=== PATIENT | male | born 1955 | race American Indian/Alaskan Native ===

== ENCOUNTER 2017-03-08 16:47 | Inpatient (IN) | payer MEDICAID, OTHER ==
[2017-03-08 16:52] VITALS: BMI 29.3
--- NOTE | 2017-03-08 19:10 | ED PDOC ---
Arrival/HPI - General Historian: Patient - History of Present Illness Time/Duration: < week - General Chief Complaint: Cough, Cold, Congestion Time Seen by Provider: 03/08/17 17:45 - History of Present Illness Narrative History of Present Illness (Text): 03/08/17 19:11 This is a 61Y M with PMH of pneumonia with trach placement 3 yrs ago here for SOB, Cough and body aches for 2 days. His cough is described as dry. He denies fever, chills, sick contacts, n/v/d, numbness/tingling. He tried to take OTC benadryl without any relief. The patient denies recent travel. Patient reports the last time he had pneumonia he waited 2 weeks and it got so severe that he needed a tracheostomy. 03/08/17 19:14 (Eileen Todd) Past Medical History - Provider Review Nursing Documentation Reviewed: Yes - Psychiatric Hx Substance Use: No Family/Social History - Physician Review Nursing Documentation Reviewed: Yes Family/Social History: Other (asthma ) Smoking Status: Never Smoked Hx Alcohol Use: No Hx Substance Use: No Allergies/Home Meds Allergies/Adverse Reactions: Allergies Penicillins Allergy (Verified 03/08/17 16:52) ANAPHYLAXIS Home Medications: Home Meds Medication Instructions Recorded Confirmed No Known Home Med 03/08/17 03/08/17 Review of Systems - Physician Review All systems were reviewed & negative as marked: Yes - Review of Systems Constitutional: Normal. absent: Fatigue, Fevers Eyes: Normal. absent: Vision Changes ENT: Normal. absent: Hearing Changes Respiratory: SOB, Cough. absent: Sputum Cardiovascular: Normal. absent: Chest Pain, Palpitations Gastrointestinal: Normal. absent: Abdominal Pain, Diarrhea, Nausea, Vomiting Genitourinary Male: Normal. absent: Dysuria, Frequency Musculoskeletal: Arthralgias, Myalgias Skin: Normal. absent: Rash, Pruritis Neurological: Normal. absent: Headache, Dizziness Endocrine: Normal. absent: Diaphoresis Hemo/Lymphatic: Normal Psychiatric: Normal. absent: Anxiety, Depression Physical Exam Vital Signs Reviewed: Yes Temperature: Afebrile Blood Pressure: Normal Pulse: Regular Respiratory Rate: Normal Appearance: Positive for: Well-Appearing, Non-Toxic, Comfortable Pain Distress: None Mental Status: Positive for: Alert and Oriented X 3 - Systems Exam Head: Present: Atraumatic, Normocephalic Pupils: Present: PERRL Extroacular Muscles: Present: EOMI Conjunctiva: Present: Normal Mouth: Present: Moist Mucous Membranes Neck: Present: Normal Range of Motion Respiratory/Chest: Present: Clear to Auscultation, Good Air Exchange. No: Respiratory Distress, Accessory Muscle Use, Wheezes, Rales, Rhonchi, Tachypneic , Tender to Palpation Cardiovascular: Present: Regular Rate and Rhythm, Normal S1, S2. No: Murmurs Abdomen: Present: Normal Bowel Sounds. No: Tenderness, Distention, Peritoneal Signs Back: Present: Normal Inspection Upper Extremity: Present: Normal Inspection. No: Cyanosis, Edema Lower Extremity: Present: Normal Inspection. No: Edema Neurological: Present: GCS=15, CN II-XII Intact, Speech Normal Skin: Present: Warm, Dry, Normal Color. No: Rashes Psychiatric: Present: Alert, Oriented x 3, Normal Insight, Normal Concentration Medical Decision Making Re-evaluation Time: 19:15 Reassessment Condition: Unchanged - Lab Interpretations I have reviewed the lab results: Yes Interpretation: Abnormal lab values (leukopenia, mild anemia) - RAD Interpretation Search Planner: ED Physician - EKG Interpretation Interpreted by ED Physician: Yes Type: 12 lead EKG Comparison: No previous EKG avail. ED Course and Treatment: 03/08/17 19:12 Impression: This is a 61YM with PMH of pneumonia s/p trach who came to Emergency department for shortness of breath, cough and body aches. Differential Diagnosis include but are not limited to: bronchitis, pneumonia, viral cold Plan: -- Chest X-ray -- CBC, CMP, U/A, blood culture -- EKG -- Reassess and disposition Prior Visits: Notes and results from previous visits were reviewed. Progress Notes: Chest X-ray showed R sided pneumonia. Zithromax and Rocephin ordered. Spoke with medical van driver. Spoke with Dr. Zayas who accepted the patient. Reevaluation: On reevaluation the patient feels better and is in no acute distress. I have discussed the results and plan with the patient, who expresses understanding. Patient given the opportunity to ask question, all questions were answered and there is agreement with the plan to admit patient for IV antibiotics and further observation. (Eileen Todd) 03/08/17 19:[address] Passafaro, pending labs and admission pt seen and examined in no resp distress and speaking full sentences without difficulty resident notes reviewed (Denver Comer) - Lab Interpretations Lab Results: 03/08/17 18:45 03/08/17 18:45 Lab Results 03/08/17 18:45: Sodium 139, Potassium 4.2, Chloride 102, Carbon Dioxide 29, Anion Gap 12, BUN 11, Creatinine 1.3, Est GFR ( Amer) > 60, Est GFR (Non- Af Amer) 56, Random Glucose 72, Calcium 9.5, Total Bilirubin 1.1, AST 38, ALT 46 , Alkaline Phosphatase 105, Total Protein 9.3 H, Albumin 4.4, Globulin 4.9, Albumin/Globulin Ratio 0.9 L 03/08/17 18:45: WBC 3.6 L, RBC 5.28, Hgb 14.1, Hct 41.5 L, MCV 78.6 L, MCH 26.7 , MCHC 34.0, RDW 14.6 H, Plt Count 256, MPV 9.4, Gran % 50.4, Lymph % (Auto) 26.5, Dundy % (Auto) 11.4 H, Eos % (Auto) 11.1 H, Baso % (Auto) 0.6, Gran # 1.81 , Lymph # 1.0 L, Dundy # 0.4, Eos # 0.4, Baso # 0.02 - RAD Interpretation Narrative RAD Interpretations (Text): 03/08/17 19:16 Chest X-ray showed R sided pneumonia. (Eileen Todd) Radiology Orders: 03/08/17 17:59 CHEST PORTABLE [RAD] Stat - EKG Interpretation EKG Interpretation (Text): 03/08/17 19:40 HR 62. Normal intervals. NSR. (Eileen Todd) - Medication Orders Current Medication Orders: Azithromycin (Zithromax 500mg In Ns) 500 mg in 250 mls @ 167 mls/hr IVPB STAT STA PRN Reason: Protocol Stop: 03/08/17 20:51 Discontinued Medications Ceftriaxone Sodium (Rocephin 1 Gram Ivpb) 1 gm in 100 mls @ 200 mls/hr IVPB STAT STA PRN Reason: Protocol Stop: 03/08/17 19:51 Ketorolac Tromethamine (Toradol) 30 mg IVP STAT STA Stop: 03/08/17 18:09 Last Admin: 03/08/17 19:14 Dose: 30 mg Disposition/Present on Arrival - Present on Arrival Any Indicators Present on Arrival: No History of DVT/PE: No History of Uncontrolled Diabetes: No Urinary Catheter: No History of Decub. Ulcer: No History Surgical Site Infection Following: None - Disposition Have Diagnosis and Disposition been Completed?: Yes Disposition Time: 19:17 Patient Plan: Admission - Disposition Diagnosis: Pneumonia Disposition: HOSPITALIZED Patient Problems: Current Active Problems Problem Status Onset Pneumonia Acute Condition: GOOD Print Language: HUNGARIAN Ref[place]: [facility] [place] - Follow up with primary [facility] [Outside] - Follow up with primary
[2017-03-08 19:18] LABS: ADD MANUAL DIFF? NO
[2017-03-08] MEDS ORDERED: cefTRIAXone 1 gm 1 GM/100 ML BAG IVPB STA (19:22)
[2017-03-08] MEDS ORDERED: Azithromycin 500MG/NS 250ml 500 MG/250 ML BAG IVPB STA (19:22)
[2017-03-08 19:24] LABS: BASO # 0.02 K/mm3 (0.0-2.0); BASO % 0.6 % (0.0-3.0); EOS # 0.4 (0.0-0.7); EOS % 11.1 % (1.5-5.0); GRAN # 1.81 (1.4-6.5); GRAN % 50.4 % (50.0-68.0); HEMATOCRIT 41.5 % (42.0-52.0); LYMPH % 26.5 % (22.0-35.0); MEAN CELL VOLUME 78.6 fL (80.0-105.0); MEAN CORPUSCULAR HEMOGLOBIN 26.7 pg (25.0-35.0); MEAN PLATELET VOLUME 9.4 fl (7.0-11.0); MONO # 0.4 (0.1-0.6); MONO % 11.4 % (1.0-6.0); PLATELET COUNT 256 10^3/uL (120.0-450.0); RED CELL DISTRIBUTION WIDTH 14.6 % (11.5-14.5); WHITE BLOOD COUNT 3.6 10^3/ul (4.5-11.0)
[2017-03-08 19:34] LABS: ALB/GLOB RATIO 0.9 (1.1-1.8); ALKALINE PHOSPHATASE 105 U/L (38-133); ALT/SGPT 46 U/L (7-56); AST/SGOT 38 U/L (15-59); BILIRUBIN,TOTAL 1.1 mg/dL (0.2-1.3); BLOOD UREA NITROGEN 11 mg/dL (7-21); CALCIUM 9.5 mg/dL (8.4-10.5); CARBON DIOXIDE 29 mmol/L (21-33); CHLORIDE 102 mmol/L (98-107); GFR AFRICAN-AMERICAN > 60; GLUCOSE,RANDOM 72 mg/dL (70-110); POTASSIUM 4.2 mmol/L (3.6-5.0); SODIUM 139 mmol/L (132-148); TOTAL PROTEIN 9.3 g/dL (5.8-8.3)
[2017-03-08] MEDS ORDERED: DiphenhydrAMINE 50 mg/ml Inj IVP PRN (20:57)
--- NOTE | 2017-03-08 22:17 | CP.PCM.HP ---
<Najma Church - Last Filed: 03/09/17 00:02> History of Present Illness - History of Present Illness History of Present Illness: 61 year old male with past medical history of pneumonia with tracheostomy in 2013 presents to [facility] ED with generalized weakness, shortness of breath and coughs. Patient reports he started feeling weakness and decreased appetite for the past 2 weeks. Two days ago, patient started experience shortness of breath and productive cough with yellow phlegm. Patient states these symptoms are similar to his pneumonia 3 years ago, but not as severe this time. Patient thought it was his seasonal allergy that is causing him to have these symptoms, but decided to come to the ED to be evaluated because his told him to. In the ED, CXR showed right sided infiltrate suggestive of pneumonia. Patient was given Zithromax and Rocephin. Patient denies having headache, fever, chills, chest pain, abdominal pain, nausea, vomiting, or urinary symptoms. PMD: Dr. Hinton PMHx: bronchitis PSHx: none Allergy: Penicillins (rash), seasonal allergy Social Hx: Admits to social alcohol use, denies alcohol or other drug use. Works as a laborer [employer] Family Hx: mother-breast CA, father-asthma Home meds: none Present on Admission - Present on Admission Any Indicators Present on Admission: No History of DVT/PE: No History of Uncontrolled Diabetes: No Review of Systems - Constitutional Constitutional: As Per HPI, Weakness. absent: Chills, Fever - EENT Eyes: As Per HPI. absent: Blurred Vision, Dry Eye, Loss of Vision Ears: As Per HPI. absent: Dizziness Nose/Mouth/Throat: As Per HPI. absent: Sore Throat - Cardiovascular Cardiovascular: As Per HPI. absent: Chest Pain, Chest Pain at Rest, Chest Pain with Activity, Syncope - Respiratory Respiratory: As Per HPI, Cough, Dyspnea, Change in Mucous Color - Gastrointestinal Gastrointestinal: As Per HPI. absent: Abdominal Pain, Nausea, Vomiting - Genitourinary Genitourinary: As Per HPI. absent: Hematuria, Pyuria, Urinary Frequency, Urinary Hesitance - Musculoskeletal Musculoskeletal: As Per HPI. absent: Deformity, Muscle Cramps, Numbness, Tingling Additional comments: generalized body aches - Integumentary Integumentary: As Per HPI. absent: Rash, Swelling - Neurological Neurological: As Per HPI, Weakness. absent: Dizziness, Syncope - Psychiatric Psychiatric: As Per HPI. absent: Confusion, Depression - Endocrine Endocrine: As Per HPI - Hematologic/Lymphatic Hematologic: As Per HPI Past Patient History - Past Social History Smoking Status: Never Smoked - PSYCHIATRIC Hx Substance Use: No - SURGICAL HISTORY Hx Surgeries: No Meds Allergies/Adverse Reactions: Allergies Allergy/AdvReac Type Severity Reaction Status Date / Time Penicillins Allergy ANAPHYLAXIS Verified 03/08/17 16:52 Physical Exam - Constitutional Appears: Non-toxic, No Acute Distress - Head Exam Head Exam: ATRAUMATIC, NORMAL INSPECTION, NORMOCEPHALIC - Eye Exam Eye Exam: EOMI, Normal appearance, PERRL - ENT Exam ENT Exam: Mucous Membranes Moist - Neck Exam Neck exam: Positive for: Normal Inspection - Respiratory Exam Respiratory Exam: Clear to Auscultation Bilateral, NORMAL BREATHING PATTERN. absent: Rhonchi, Wheezes, Respiratory Distress - Cardiovascular Exam Cardiovascular Exam: REGULAR RHYTHM, RRR, +S1, +S2 - GI/Abdominal Exam GI & Abdominal Exam: Normal Bowel Sounds, Soft. absent: Rigid, Tenderness - Extremities Exam Extremities exam: Positive for: normal capillary refill, normal inspection, pedal pulses present - Neurological Exam Neurological exam: Alert, Oriented x3 - Psychiatric Exam Psychiatric exam: Normal Affect, Normal Mood - Skin Skin Exam: Dry, Intact, Normal Color, Warm Results - Vital Signs Recent Vital Signs: Last Vital Signs Temp 98.4 F 03/08/17 16:52 Pulse 65 03/08/17 20:18 Resp 18 03/08/17 20:18 BP 121/68 03/08/17 20:18 Pulse Ox 97 03/08/17 20:18 - Labs Result Diagrams: 03/08/17 18:45 03/08/17 18:45 Assessment & Plan - Assessment and Plan (Free Text) Assessment: 61 year old male with past medical history of pneumonia s/p trach presents with shortness of breath, cough and body aches Plan: Shortness of breath, cough and body aches -Pneumonia vs bronchitis vs flu -CXR showed right sided lung infiltrate -No leukocytosis, no infiltrate -Started Rocephin and azithromycin IV -Follow up rapid flu test, s. pneumoniae and legionella ag -Follow up blood culture -Aspiration precaution Prophylactic measures -Protonix for GI ppx -Lovenox for DVT ppx -Benadryl for allergy symptoms -Tylenol for fever <Rosemary Zayas - Last Filed: 03/09/17 06:17> Results - Vital Signs Recent Vital Signs: Last Vital Signs Temp 99.1 F 03/08/17 20:53 Pulse 74 03/08/17 20:53 Resp 20 03/08/17 20:53 BP 135/93 H 03/08/17 20:53 Pulse Ox 97 03/08/17 20:18 - Labs Result Diagrams: 03/08/17 18:45 03/08/17 18:45 Attending/Attestation - Attestation I have personally seen and examined this patient.: Yes I have fully participated in the care of the patient.: Yes I have reviewed all pertinent clinical information: Yes Notes (Text): 03/09/17 06:15 Patient was seen with medical program specialist when he was in the ER . Agree with history , physical examination, assessment and plan.
[2017-03-08] MEDS ORDERED: guaiFENesin 100 mg/5 ml Syrup UD PO PRN (23:13)
[2017-03-09] MEDS: Pantoprazole 40 mg EC Tab PO SCH (05:39)
[2017-03-09] MEDS: cefTRIAXone 1 gm 1 GM/100 ML BAG IVPB SCH (09:14)
[2017-03-09] MEDS: Enoxaparin 30 mg Syringe SC SCH (09:14)
[2017-03-09] MEDS ORDERED: Azithromycin 500MG/NS 250ml 500 MG/250 ML BAG IVPB SCH (10:00)
--- NOTE | 2017-03-09 10:11 | RAD ---
HISTORY: r/o infiltrate COMPARISON: No prior. FINDINGS: LUNGS: Bilateral upper lobe perihilar infiltrates are seen consistent with pneumonia PLEURA: No significant pleural effusion identified, no pneumothorax apparent. CARDIOVASCULAR: Normal. OSSEOUS STRUCTURES: No significant abnormalities. VISUALIZED UPPER ABDOMEN: Normal. OTHER FINDINGS: None. IMPRESSION: Bilateral upper lobe perihilar infiltrates consistent with pneumonia
--- NOTE | 2017-03-09 11:03 | CP.PCM.PN ---
<Jamarcus Perez - Last Filed: 03/09/17 10:56> Subjective - Date & Time of Evaluation Date of Evaluation: 03/09/17 Time of Evaluation: 08:45 - Subjective Subjective: Medicine Progress note. Dr. Boone Pt seen and examined at bedside. No acute events overnight. Still c/o mild pleuritic chest pain and SOB on deep inspiration. No F/C. No N/V/D. No Abd pain. tolerating diet. No new complaints Objective - Vital Signs/Intake and Output Vital Signs (last 24 hours): Temp Pulse Resp BP Pulse Ox 97.7 F 61 20 121/74 99 03/09/17 07:30 03/09/17 07:30 03/09/17 07:30 03/09/17 07:30 03/09/17 07:30 - Medications Medications: Current Medications Acetaminophen (Tylenol 325mg Tab) 650 mg PO Q6 PRN PRN Reason: Fever >100.4 F Diphenhydramine HCl (Benadryl) 50 mg IVP Q4H PRN PRN Reason: Allergy symptoms Enoxaparin Sodium (Lovenox) 30 mg SC DAILY BRITTNY PRN Reason: Protocol Last Admin: 03/09/17 09:14 Dose: 30 mg Guaifenesin (Robitussin) 100 mg PO Q4H PRN PRN Reason: Cough Ceftriaxone Sodium (Rocephin 1 Gram Ivpb) 1 gm in 100 mls @ 100 mls/hr IVPB DAILY BRITTNY PRN Reason: Protocol Last Admin: 03/09/17 09:14 Dose: 100 mls/hr Azithromycin (Zithromax 500mg In Ns) 500 mg in 250 mls @ 167 mls/hr IVPB DAILY BRITTNY PRN Reason: Protocol Last Admin: 03/09/17 09:14 Dose: 167 mls/hr Pantoprazole Sodium (Protonix Ec Tab) 40 mg PO 0630 [facility] Last Admin: 03/09/17 05:39 Dose: 40 mg - Constitutional Appears: Well, No Acute Distress - Head Exam Head Exam: NORMAL INSPECTION - Eye Exam Eye Exam: EOMI, Normal appearance, PERRL. absent: Scleral icterus Pupil Exam: PERRL - ENT Exam ENT Exam: Mucous Membranes Moist - Neck Exam Neck Exam: Full ROM - Respiratory Exam Respiratory Exam: Clear to Ausculation Bilateral, NORMAL BREATHING PATTERN. absent: Accessory Muscle Use, Decreased Breath Sounds, Rales, Rhonchi, Wheezes Additional comments: no egophany - Cardiovascular Exam Cardiovascular Exam: RRR, +S1, +S2. absent: JVD - GI/Abdominal Exam GI & Abdominal Exam: Soft. absent: Guarding, Rigid, Tenderness, Rebound - Extremities Exam Extremities Exam: Normal Inspection. absent: Calf Tenderness, Pedal Edema - Back Exam Back Exam: NORMAL INSPECTION - Neurological Exam Neurological Exam: Alert, Awake, Oriented x3 - Psychiatric Exam Psychiatric exam: Normal Affect, Normal Mood - Skin Skin Exam: Dry, Intact, Normal Color, Warm Assessment and Plan - Assessment and Plan (Free Text) Assessment: 61yo M with PMHx of Pneumonia s/p trach 2 years ago here for evaluation of recurrent Pneumonia 1. Bilateral upper lobe pneumonia -CXR shows bilateral upper lobe infiltrates -No leukocytosis -Started Rocephin and azithromycin IV reports PCN allergy, however, no symptoms after receiving Rocephin in the ED last night -Follow up rapid flu test, s. pneumoniae and legionella ag -Follow up blood culture -Aspiration precautions ID consult, Dr. Medina, appreciate recs 2. PPx -Protonix -Lovenox -Benadryl for allergy symptoms -Tylenol for fever Discussed case with Dr. Mely Perez PGY1 <Anna Boone - Last Filed: 03/09/17 12:38> Objective - Vital Signs/Intake and Output Vital Signs (last 24 hours): Temp Pulse Resp BP Pulse Ox 97.7 F 61 20 121/74 99 03/09/17 07:30 03/09/17 07:30 03/09/17 07:30 03/09/17 07:30 03/09/17 07:30 - Medications Medications: Current Medications Acetaminophen (Tylenol 325mg Tab) 650 mg PO Q6 PRN PRN Reason: Fever >100.4 F Diphenhydramine HCl (Benadryl) 50 mg IVP Q4H PRN PRN Reason: Allergy symptoms Enoxaparin Sodium (Lovenox) 30 mg SC DAILY BRITTNY PRN Reason: Protocol Last Admin: 03/09/17 09:14 Dose: 30 mg Guaifenesin (Robitussin) 100 mg PO Q4H PRN PRN Reason: Cough Ceftriaxone Sodium (Rocephin 1 Gram Ivpb) 1 gm in 100 mls @ 100 mls/hr IVPB DAILY BRITTNY PRN Reason: Protocol Last Admin: 03/09/17 09:14 Dose: 100 mls/hr Azithromycin (Zithromax 500mg In Ns) 500 mg in 250 mls @ 167 mls/hr IVPB DAILY BRITTNY PRN Reason: Protocol Last Admin: 03/09/17 09:14 Dose: 167 mls/hr Pantoprazole Sodium (Protonix Ec Tab) 40 mg PO 0630 [facility] Last Admin: 03/09/17 05:39 Dose: 40 mg Attending/Attestation - Attestation I have personally seen and examined this patient.: Yes I have fully participated in the care of the patient.: Yes I have reviewed all pertinent clinical information, including history, physical exam and plan: Yes Notes (Text): 03/09/17 12:36 61 year old male with past medical history of pneumonia 2 years prior who presented with complaint of weakness and shortness of breath. He as found to have bilateral lobe infiltrates on cxr consistent with pneumonia. He is on azithromycin and rocephin. Although he reports allergy to penicillin described as a rash he is tolerated rocephin. Benadryl prn is ordered for allergy symptoms if needed. Will follow up on procalcitonin and cultures. WBC 3.9. Will monitor. Anna Boone MD Hospitalist.
--- NOTE | 2017-03-09 14:09 | CARD ---
APPROVED REPORT EKG Measurement Heart [id number] OH [id number] <Conclusion> Normal sinus rhythm Normal ECG
[2017-03-09 17:09] LABS: TROPONIN I < 0.01 ng/mL
--- NOTE | 2017-03-09 18:44 | CON ---
DATE: 03/09/2017 The patient was seen in 573. CHIEF COMPLAINT: Shortness of breath and right-sided chest pain times several days. HISTORY OF PRESENT ILLNESS: This is a 61-year-old male with past medical history of pneumonia which required a tracheostomy 3 years ago and is now admitted with pulmonary symptoms and found to have a p neumonia and infectious disease consultation requested. The patient states that he did have occasion al chills, but no fevers. There is cough, nonproductive. There is right-sided pleuritic chest pain. No headaches or blurry vision. There was one episode of diarrhea, but no abdominal pain, no dysuri a or frequency. PAST MEDICAL HISTORY: Significant for pneumonia. PAST SURGICAL HISTORY: Significant for a tracheostomy. ALLERGIES: PENICILLIN. He gets a rash. He was already given ceftriaxone here in the hospital and he tolerated well. The patient has no expo sure to tuberculosis. He lives with his children. He has no exposure to any pets and no recent tra daniel. The last travel was many years ago to [place]. He did not get the influenza vaccine and he is n ot working. PHYSICAL EXAMINATION: GENERAL: The patient is in bed, answering questions appropriately, nontoxic. VITAL SIGNS: Temperature of 98, blood pressure is 130/90, respiratory rate of 20, heart rate of 70. HEENT: Unremarkable. NECK: Supple. LUNGS: Have decreased breath sounds. HEART: Normal S1, S2. ABDOMEN: Soft and nontender, no rebound, no guarding. LABORATORY EXAMINATION: Reveals a white count of 3.6, hemoglobin of 14. MCV is 78 with platelets of 256. Chemistries reveal the BUN of 11, creatinine of 1.3. GFR is greater than 60, with an albumin of 4.4. Chest x-ray reveals bilateral upper lobe infiltrate. EKG is noted. Emergency Room chart is swapna beatty. Dr. Zayas's history and physical examination is reviewed. ASSESSMENT AND PLAN: This is a 61-year-old male with pneumonia, bilateral community-acquired pneumon ia. We will treat the patient with ceftriaxone and Levaquin and patient has already tolerated ceftri axone. Will work up for vasculitis, Kaplan's and Goodpasture's. The patient does have some renal in sufficiency with creatinine of 1.3. We will also order an HIV procalcitonin, cardiac iso's and influ nadya, a urinalysis and sotelo cultures. Will make further recommendations. We will also order a CAT sc an of the chest. Donato Medina MD cc: [phone] TT: 03/09/2017 18:43:19 Confirmation # [id number] Dictation # [id number] rn
[2017-03-09 19:37] LABS: URINE BILIRUBIN NEGATIVE (NEGATIVE); URINE BLOOD NEGATIVE (NEGATIVE); URINE GLUCOSE (UA) NEGATIVE (NEGATIVE); URINE KETONE NEGATIVE (NEGATIVE); URINE LEUKOCYTE ESTERASE NEGATIVE Leu/uL (NEGATIVE); URINE PROTEIN 30 mg/dL (<30 mg/dL); URINE UROBILINOGEN 0.2 E.U./dL (<1 E.U./dL)
[2017-03-09 19:40] LABS: URINE APPEARANCE CLEAR (CLEAR); URINE COLOR YELLOW (YELLOW)
[2017-03-09 19:50] LABS: URINE EPITHELIAL CELLS 0 - 2 /hpf (0-5); URINE RBC 0 - 2 /hpf (0-2); URINE WBC 0 - 2 /hpf (0-6)
[2017-03-09 19:51] LABS: URINE AMORPHOUS SEDIMENT FEW; URINE BACTERIA MOD (NEG)
[2017-03-10 01:22] LABS: TROPONIN I < 0.01 ng/mL
[2017-03-10] MEDS: Pantoprazole 40 mg EC Tab PO SCH (05:39)
[2017-03-10 08:49] LABS: TROPONIN I < 0.01 ng/mL
[2017-03-10] MEDS: cefTRIAXone 1 gm 1 GM/100 ML BAG IVPB SCH (09:18)
[2017-03-10] MEDS: levoFLOXacin 500 MG TAB PO SCH (09:19)
[2017-03-10] MEDS: Enoxaparin 30 mg Syringe SC SCH (09:19)
--- NOTE | 2017-03-10 11:34 | CT ---
PROCEDURE: CT Chest without contrast HISTORY: r/o mass COMPARISON: None. TECHNIQUE: Contiguous axial images were obtained through the chest without intravenous contrast enhancement. Sagittal and coronal reconstructions were performed. Radiation dose (DLP): 505 mGy-cm. This CT exam was performed using one or more of the following dose reduction techniques: Automated exposure control, adjustment of the mA and/or kV according to patient size, and/or use of iterative reconstruction technique. FINDINGS: LUNGS: Dense perihilar alveolar infiltrates are seen with air bronchograms. There is no evidence of an obstructing endobronchial mass. A parenchymal mass cannot be excluded and followup is recommended. Scattered small peripheral nodules are seen. These could represent noncalcified granulomas. These could also represent metastatic nodules. There were no prior CT studies for comparison. MEDIASTINUM: Unremarkable thoracic aorta. No aneurysm. Normal sized heart. Main pulmonary artery unremarkable. No vascular congestion. No lymphadenopathy. PLEURA: No pleural fluid. No pneumothorax. BONES: No fracture. No destructive lesion. UPPER ABDOMEN: Grossly unremarkable. OTHER FINDINGS: None. IMPRESSION: Dense bilateral perihilar infiltrates and most consistent with pneumonia. Scattered small peripheral nodules Followup is recommended post treatment
--- NOTE | 2017-03-10 13:56 | PN ---
DATE: 03/10/2017 The patient is seen earlier. The patient is still complaining of right-sided chest pain. No fevers, no chills. PHYSICAL EXAMINATION: VITAL SIGNS: Temperature is 97, blood pressure is 130/80, respiratory rate of 20, heart rate of 61. HEENT: Unremarkable. NECK: Supple. LUNGS: Have decreased breath sounds. HEART: Normal S1, S2. ABDOMEN: Soft, nontender. LABORATORY EXAMINATION: Reveals a white count of 3.6, hemoglobin of 14, MCV 78, platelets of 256. S ed rate is 30. Chemistries reveals procalcitonin, 2 of them are less than 0.05. C-reactive protein is elevated at 8.16. Troponins were negative x 3. LDH is normal and LFTs are normal. Urinalysis is negative. Microbiology reveals the blood cultures are no growth at 24 hours. Review of orders reveals the patient had a CAT scan of the chest. CAT scan of the chest results are pending. Awaiting for ANCA and vasculitis workup. Awaiting for HIV, influenza workup and urine for legionella workup. Currently on p.o. Levaquin and IV ceftriaxone. ASSESSMENT AND PLAN: A 61-year-old male with bilateral community-acquired pneumonia. He does not me et CURB-65 criteria, on Rocephin and Levaquin. We will check on the CAT scan of the chest and pendin g further workup. Donato Medina MD cc: [phone] TT: 03/10/2017 13:56:04 Confirmation # [id number] Dictation # [id number]
[2017-03-10 14:31] LABS: HEMATOCRIT 37.3 % (42.0-52.0); MEAN CELL VOLUME 79.5 fL (80.0-105.0); MEAN CORPUSCULAR HEMOGLOBIN 27.1 pg (25.0-35.0); MEAN PLATELET VOLUME 9.9 fl (7.0-11.0); RED CELL DISTRIBUTION WIDTH 14.8 % (11.5-14.5)
[2017-03-10 14:36] LABS: WHITE BLOOD COUNT 2.8 10^3/ul (4.5-11.0)
[2017-03-10 16:23] VITALS: O2SAT 98
--- NOTE | 2017-03-10 17:52 | CP.PCM.PN ---
<Romina Tavarez - Last Filed: 03/11/17 07:06> Subjective - Date & Time of Evaluation Date of Evaluation: 03/10/17 Time of Evaluation: 08:30 - Subjective Subjective: Pt seen and evaluated at bedside. PT denies SOB, and only reports SOB w/ standing. Lessening of cough reported. Afebrile overnight. Objective - Vital Signs/Intake and Output Vital Signs (last 24 hours): Temp Pulse Resp BP Pulse Ox 98.3 F 63 20 153/91 H 98 03/10/17 16:00 03/10/17 16:00 03/10/17 16:00 03/10/17 16:00 03/10/17 16:00 Intake and Output: 03/10/17 03/10/17 06:59 18:59 Intake Total 780 960 Balance 780 960 - Medications Medications: Current Medications Acetaminophen (Tylenol 325mg Tab) 650 mg PO Q6 PRN PRN Reason: Fever >100.4 F Last Admin: 03/10/17 15:57 Dose: 650 mg Diphenhydramine HCl (Benadryl) 50 mg IVP Q4H PRN PRN Reason: Allergy symptoms Enoxaparin Sodium (Lovenox) 30 mg SC DAILY BRITTNY PRN Reason: Protocol Last Admin: 03/10/17 09:19 Dose: 30 mg Guaifenesin (Robitussin) 100 mg PO Q4H PRN PRN Reason: Cough Ceftriaxone Sodium (Rocephin 1 Gram Ivpb) 1 gm in 100 mls @ 100 mls/hr IVPB DAILY BRITTNY PRN Reason: Protocol Last Admin: 03/10/17 09:18 Dose: 100 mls/hr Levofloxacin (Levaquin) 500 mg PO DAILY [facility] Stop: 03/17/17 10:01 Last Admin: 03/10/17 09:19 Dose: 500 mg Pantoprazole Sodium (Protonix Ec Tab) 40 mg PO 0630 [facility] Last Admin: 03/10/17 05:39 Dose: 40 mg - Labs Labs: 03/10/17 14:22 - Additional Findings Additional findings: - Constitutional Appears: Well, No Acute Distress - Head Exam Head Exam: NORMAL INSPECTION, normocephalic - Eye Exam Eye Exam: EOMI, Normal appearance, PERRL. - ENT Exam ENT Exam: Mucous Membranes Moist, normal external ear exam - Respiratory Exam Respiratory Exam: Clear to Ausculation Bilateral, NORMAL BREATHING PATTERN. - Cardiovascular Exam Cardiovascular Exam: no bradycardia, +S1, +S2. - GI/Abdominal Exam GI & Abdominal Exam: Soft, non-tender - Extremities Exam Extremities Exam: Normal Inspection. absent: Calf Tenderness, Pedal Edema - Back Exam Back Exam: NORMAL INSPECTION - Neurological Exam Neurological Exam: Alert, Awake - Psychiatric Exam Psychiatric exam: Normal Affect, Normal Mood - Skin Skin Exam: Dry, Intact Assessment and Plan - Assessment and Plan (Free Text) Plan: 61yo M with PMHx of Pneumonia s/p trach 2 years ago, admitted for Pneumonia, which is recurrent 1. Bilateral upper lobe pneumonia -CXR shows bilateral upper lobe infiltrates -No leukocytosis -Rocephin. Levaquin started, and azithromycin d/c. reports PCN allergy, however, no symptoms after receiving Rocephin in the ED benadryl PRN for allergy symptoms -Follow up rapid flu test, s. pneumoniae and legionella ag -blood culture negative at 24 hours x 2 -Aspiration precautions ID consult, Dr. Medina, appreciate recs 2. PPx -Protonix -Lovenox -Benadryl for allergy symptoms -Tylenol for fever Discussed case with Dr. Mely Tavarez PGY1 <Anna Boone - Last Filed: 03/12/17 21:57> Objective - Vital Signs/Intake and Output Vital Signs (last 24 hours): Temp Pulse Resp BP Pulse Ox 99.1 F 69 18 141/85 98 03/11/17 08:00 03/11/17 08:00 03/11/17 08:00 03/11/17 08:00 03/11/17 08:00 - Labs Labs: 03/11/17 05:00 03/11/17 05:00 Attending/Attestation - Attestation I have personally seen and examined this patient.: Yes I have fully participated in the care of the patient.: Yes I have reviewed all pertinent clinical information, including history, physical exam and plan: Yes Notes (Text): 03/10/17 61 year old male with past medical history of pneumonia 2 years prior who presented with complaint of weakness and shortness of breath. He was found to have bilateral lobe infiltrates on cxr consistent with pneumonia and started on iv antibiotics. ID is following the patient. CT chest was reviewed. Recommended outpatient CT chest for follow up on peripheral nodules. Anna Boone MD Hospitalist.
[2017-03-11] MEDS: Pantoprazole 40 mg EC Tab PO SCH (05:49)
[2017-03-11 07:59] LABS: HEMATOCRIT 38.5 % (42.0-52.0); MEAN CELL VOLUME 78.7 fL (80.0-105.0); MEAN CORPUSCULAR HEMOGLOBIN 26.8 pg (25.0-35.0); MEAN PLATELET VOLUME 9.6 fl (7.0-11.0); RED CELL DISTRIBUTION WIDTH 14.5 % (11.5-14.5); WHITE BLOOD COUNT 3.4 10^3/ul (4.5-11.0)
[2017-03-11 08:07] LABS: BLOOD UREA NITROGEN 15 mg/dL (7-21); CALCIUM 9.4 mg/dL (8.4-10.5); CARBON DIOXIDE 27 mmol/L (21-33); CHLORIDE 102 mmol/L (98-107); GFR AFRICAN-AMERICAN > 60; GLUCOSE,RANDOM 86 mg/dL (70-110); POTASSIUM 4.2 mmol/L (3.6-5.0); SODIUM 138 mmol/L (132-148)
[2017-03-11 08:28] VITALS: BP 141/85; PULSE 69; RESP 18; TEMP 99.1
[2017-03-11] MEDS: levoFLOXacin 500 MG TAB PO SCH (09:13)
[2017-03-11] MEDS: Enoxaparin 30 mg Syringe SC SCH (09:13)
[2017-03-11] MEDS: cefTRIAXone 1 gm 1 GM/100 ML BAG IVPB SCH (09:13)
--- NOTE | 2017-03-11 10:43 | CP.PCM.DIS ---
<Romina Tavarez - Last Filed: 03/12/17 16:08> Provider - Provider Date of Admission: 03/08/17 19:36 Attending physician: Filiberto Hoffman MD Primary care physician: unknown Consults: Dr. Medina Time Spent in preparation of Discharge (in minutes): 25 Hospital Course - Lab Results Lab Results: Micro Results 03/09/17 19:11 Urine Urine Culture - Final No Growth (<1,000 CFU/ML) Most Recent Lab Values WBC 3.4 10^3/ul (4.5-11.0) L D 03/11/17 05:00 RBC 4.89 10^6/uL (3.5-6.1) 03/11/17 05:00 Hgb 13.1 gm/dL (14.0-18.0) L 03/11/17 05:00 Hct 38.5 % (42.0-52.0) L 03/11/17 05:00 MCV 78.7 fL (80.0-105.0) L 03/11/17 05:00 MCH 26.8 pg (25.0-35.0) 03/11/17 05:00 MCHC 34.0 g/dl (31.0-37.0) 03/11/17 05:00 RDW 14.5 % (11.5-14.5) 03/11/17 05:00 Plt Count 237 10^3/uL (120.0-450.0) 03/11/17 05:00 MPV 9.6 fl (7.0-11.0) 03/11/17 05:00 Gran % 50.4 % (50.0-68.0) 03/08/17 18:45 Lymph % (Auto) 26.5 % (22.0-35.0) 03/08/17 18:45 [place] % (Auto) 11.4 % (1.0-6.0) H 03/08/17 18:45 Eos % (Auto) 11.1 % (1.5-5.0) H 03/08/17 18:45 Baso % (Auto) 0.6 % (0.0-3.0) 03/08/17 18:45 Gran # 1.81 (1.4-6.5) 03/08/17 18:45 Lymph # 1.0 (1.2-3.4) L 03/08/17 18:45 [place] # 0.4 (0.1-0.6) 03/08/17 18:45 Eos # 0.4 (0.0-0.7) 03/08/17 18:45 Baso # 0.02 K/mm3 (0.0-2.0) 03/08/17 18:45 ESR 30 mm/hr (0.00-15.0) H 03/09/17 16:40 Sodium 138 mmol/L (132-148) 03/11/17 05:00 Potassium 4.2 mmol/L (3.6-5.0) 03/11/17 05:00 Chloride 102 mmol/L (98-107) 03/11/17 05:00 Carbon Dioxide 27 mmol/L (21-33) 03/11/17 05:00 Anion Gap 13 (10-20) 03/11/17 05:00 BUN 15 mg/dL (7-21) 03/11/17 05:00 Creatinine 1.3 mg/dL (0.5-1.4) 03/11/17 05:00 Est GFR ( Amer) > 60 03/11/17 05:00 Est GFR (Non-Af Amer) 56 03/11/17 05:00 Random Glucose 86 mg/dL (70-110) 03/11/17 05:00 Calcium 9.4 mg/dL (8.4-10.5) 03/11/17 05:00 Total Bilirubin 1.1 mg/dL (0.2-1.3) 03/08/17 18:45 AST 38 U/L (15-59) 03/08/17 18:45 ALT 46 U/L (7-56) 03/08/17 18:45 Alkaline Phosphatase 105 U/L (38-133) 03/08/17 18:45 Lactate Dehydrogenase 523 U/L (333-699) 03/10/17 08:00 Total Creatine Kinase 98 U/L (35-230) 03/10/17 08:00 Troponin I < 0.01 ng/mL 03/10/17 08:00 C-React Prot High Sens 8.16 mg/L (1.00-3.00) H 03/09/17 16:40 Total Protein 9.3 g/dL (5.8-8.3) H 03/08/17 18:45 Albumin 4.4 g/dL (3.0-4.8) 03/08/17 18:45 Globulin 4.9 gm/dL 03/08/17 18:45 Albumin/Globulin Ratio 0.9 (1.1-1.8) L 03/08/17 18:45 Procalcitonin < 0.05 NG/ML (0.19-0.49) L 03/09/17 16:40 Urine Color Yellow (YELLOW) 03/09/17 19:11 Urine Appearance Clear (CLEAR) 03/09/17 19:11 Urine pH 6.0 (4.7-8.0) 03/09/17 19:11 Ur Specific [place] 1.020 (1.005-1.035) 03/09/17 19:11 Urine Protein 30 mg/dL (<30 mg/dL) H 03/09/17 19:11 Urine Glucose (UA) Negative mg/dL (NEGATIVE) 03/09/17 19:11 Urine Ketones Negative mg/dL (NEGATIVE) 03/09/17 19:11 Urine Blood Negative (NEGATIVE) 03/09/17 19:11 Urine Nitrate Negative (NEGATIVE) 03/09/17 19:11 Urine Bilirubin Negative (NEGATIVE) 03/09/17 19:11 Urine Urobilinogen 0.2 E.U./dL (<1 E.U./dL) 03/09/17 19:11 Ur Leukocyte Esterase Negative Sushila/uL (NEGATIVE) 03/09/17 19:11 Urine RBC 0 - 2 /hpf (0-2) 03/09/17 19:11 Urine WBC 0 - 2 /hpf (0-6) 03/09/17 19:11 Ur Epithelial Cells 0 - 2 /hpf (0-5) 03/09/17 19:11 Amorphous Sediment Few 03/09/17 19:11 Urine Bacteria Mod (NEG) 03/09/17 19:11 - Hospital Course Hospital Course: 61 year old male with past medical history of pneumonia with tracheostomy in 2013 presents to [facility] with generalized weakness, shortness of breath and coughs. Patient reports he started feeling weakness and decreased appetite for the past 2 weeks. Two days ago, patient started to experience shortness of breath and productive cough with yellow phlegm, treated with azithromycin. CXR: B/L upper lobe infiltrates, consistent w/ pneumonia. No leukocytosis. recieved rocephin and azitromycin in ED. Pt reports allergy to penicillins but had no reaction. Inpatient for dx of pneumonia. On floor, pt continued on rocephin IV and azithromycin IV, Blood cx and Ucx are currently negative. As per ID consult rec, azithromycin was d/c and levaquin was started. Pt's SOB and cough improved during course of admission. No leukocytosis or instance of fever throughout admission. Pt made a pain complaint during last day of admission, which is shingles on physical exam on R anterior T5 dermatome with closed vesicles. Pt reports pain from same R chest area for 3 days. Discharged home in good condition w/following instructions: You are discharged home. Please see your primary care physician of choice within one week. Also have follow-up visit for chest CT for scattered peripheral lung nodules within a month. Please continue your home medications. Please start new prescription of Levaquin 750 mg by mouth daily for five days, and 1000 mg of valacyclovir by mouth three times daily. Please avoid any women, newborns, young children, elderly and anyone immunocompromised for the next week. Please return to emergency department for worsening of symptoms. Discharge Exam - Head Exam Head Exam: NORMAL INSPECTION - Eye Exam Eye Exam: EOMI, Normal appearance Pupil Exam: NORMAL ACCOMODATION, PERRL - Respiratory Exam Respiratory Exam: NORMAL BREATHING PATTERN, UNREMARKABLE - Cardiovascular Exam Cardiovascular Exam: +S1, +S2. absent: Bradycardia - GI/Abdominal Exam GI & Abdominal Exam: Soft. absent: Tenderness - Exam External exam: absent: Ecchymosis, Erythema - Extremities Exam Extremities exam: normal capillary refill, pedal pulses present - Neurological Exam Neurological exam: Alert, Oriented x3 - Skin Skin Exam: Intact, Normal Color Additional comments: R anterior T5 dermatome with closed vesicles Discharge Plan - Discharge Medications Prescriptions: levoFLOXacin [Levaquin] 750 mg PO DAILY #5 tab Valacyclovir HCl [Valacyclovir] 1,000 mg PO TID #21 tablet - Follow Up Plan Condition: GOOD Disposition: HOME/ ROUTINE Instructions: Pneumococcal Vaccine for Adults (DC), Shingles (DC), Pneumonia ( DC) Additional Instructions: You are discharged home. Please see your primary care physician of choice within one week. Also have follow-up visit for chest CT for scattered peripheral lung nodules within a month. Please continue your home medications. Please start new prescription of Levaquin 750 mg by mouth daily for five days, and 1000 mg of valacyclovir by mouth three times daily. Please avoid any women, newborns, young children, elderly and anyone immunocompromised for the next week. Please return to emergency department for worsening of symptoms. Referrals: [facility] at [facility] [Outside] <Dalton ZARATE,Filiberto - Last Filed: 03/12/17 17:31> Provider - Provider Date of Admission: 03/08/17 19:36 Attending physician: Filiberto Hoffman MD Hospital Course - Lab Results Lab Results: Micro Results 03/09/17 19:11 Urine Urine Culture - Final No Growth (<1,000 CFU/ML) Most Recent Lab Values WBC 3.4 10^3/ul (4.5-11.0) L D 03/11/17 05:00 RBC 4.89 10^6/uL (3.5-6.1) 03/11/17 05:00 Hgb 13.1 gm/dL (14.0-18.0) L 03/11/17 05:00 Hct 38.5 % (42.0-52.0) L 03/11/17 05:00 MCV 78.7 fL (80.0-105.0) L 03/11/17 05:00 MCH 26.8 pg (25.0-35.0) 03/11/17 05:00 MCHC 34.0 g/dl (31.0-37.0) 03/11/17 05:00 RDW 14.5 % (11.5-14.5) 03/11/17 05:00 Plt Count 237 10^3/uL (120.0-450.0) 03/11/17 05:00 MPV 9.6 fl (7.0-11.0) 03/11/17 05:00 Gran % 50.4 % (50.0-68.0) 03/08/17 18:45 Lymph % (Auto) 26.5 % (22.0-35.0) 03/08/17 18:45 [place] % (Auto) 11.4 % (1.0-6.0) H 03/08/17 18:45 Eos % (Auto) 11.1 % (1.5-5.0) H 03/08/17 18:45 Baso % (Auto) 0.6 % (0.0-3.0) 03/08/17 18:45 Gran # 1.81 (1.4-6.5) 03/08/17 18:45 Lymph # 1.0 (1.2-3.4) L 03/08/17 18:45 [place] # 0.4 (0.1-0.6) 03/08/17 18:45 Eos # 0.4 (0.0-0.7) 03/08/17 18:45 Baso # 0.02 K/mm3 (0.0-2.0) 03/08/17 18:45 ESR 30 mm/hr (0.00-15.0) H 03/09/17 16:40 Sodium 138 mmol/L (132-148) 03/11/17 05:00 Potassium 4.2 mmol/L (3.6-5.0) 03/11/17 05:00 Chloride 102 mmol/L (98-107) 03/11/17 05:00 Carbon Dioxide 27 mmol/L (21-33) 03/11/17 05:00 Anion Gap 13 (10-20) 03/11/17 05:00 BUN 15 mg/dL (7-21) 03/11/17 05:00 Creatinine 1.3 mg/dL (0.5-1.4) 03/11/17 05:00 Est GFR ( Amer) > 60 03/11/17 05:00 Est GFR (Non-Af Amer) 56 03/11/17 05:00 Random Glucose 86 mg/dL (70-110) 03/11/17 05:00 Calcium 9.4 mg/dL (8.4-10.5) 03/11/17 05:00 Total Bilirubin 1.1 mg/dL (0.2-1.3) 03/08/17 18:45 AST 38 U/L (15-59) 03/08/17 18:45 ALT 46 U/L (7-56) 03/08/17 18:45 Alkaline Phosphatase 105 U/L (38-133) 03/08/17 18:45 Lactate Dehydrogenase 523 U/L (333-699) 03/10/17 08:00 Total Creatine Kinase 98 U/L (35-230) 03/10/17 08:00 Troponin I < 0.01 ng/mL 03/10/17 08:00 C-React Prot High Sens 8.16 mg/L (1.00-3.00) H 03/09/17 16:40 Total Protein 9.3 g/dL (5.8-8.3) H 03/08/17 18:45 Albumin 4.4 g/dL (3.0-4.8) 03/08/17 18:45 Globulin 4.9 gm/dL 03/08/17 18:45 Albumin/Globulin Ratio 0.9 (1.1-1.8) L 03/08/17 18:45 Procalcitonin < 0.05 NG/ML (0.19-0.49) L 03/09/17 16:40 Urine Color Yellow (YELLOW) 03/09/17 19:11 Urine Appearance Clear (CLEAR) 03/09/17 19:11 Urine pH 6.0 (4.7-8.0) 03/09/17 19:11 Ur Specific [place] 1.020 (1.005-1.035) 03/09/17 19:11 Urine Protein 30 mg/dL (<30 mg/dL) H 03/09/17 19:11 Urine Glucose (UA) Negative mg/dL (NEGATIVE) 03/09/17 19:11 Urine Ketones Negative mg/dL (NEGATIVE) 03/09/17 19:11 Urine Blood Negative (NEGATIVE) 03/09/17 19:11 Urine Nitrate Negative (NEGATIVE) 03/09/17 19:11 Urine Bilirubin Negative (NEGATIVE) 03/09/17 19:11 Urine Urobilinogen 0.2 E.U./dL (<1 E.U./dL) 03/09/17 19:11 Ur Leukocyte Esterase Negative Sushila/uL (NEGATIVE) 03/09/17 19:11 Urine RBC 0 - 2 /hpf (0-2) 03/09/17 19:11 Urine WBC 0 - 2 /hpf (0-6) 03/09/17 19:11 Ur Epithelial Cells 0 - 2 /hpf (0-5) 03/09/17 19:11 Amorphous Sediment Few 03/09/17 19:11 Urine Bacteria Mod (NEG) 03/09/17 19:11 HIV 1&2 Ag/Ab, 4th Gen Nonreactive (Nonreactive) 03/09/17 16:40 Attending/Attestation - Attestation I have personally seen and examined this patient.: Yes I have fully participated in the care of the patient.: Yes I have reviewed all pertinent clinical information, including history, physical exam and plan: Yes Notes (Text): 03/12/17 17:21 Patient was seen and examined with internist medical doctor md .Agreed with resident assessment and plan. Patient will need repeat CT scan of chest in 4 -5 weeks for resolution of infiltrate as recommended by ID and radiology.This was discussed in detail with him.He will follow up with his PCP for repeat CT scan in 4-5 weeks. Patient was also complaining of right lower chest pain, he was found sina have Herpez Zoster, as per patient he notices those lesion 3 days back, the lesion has involved 2 dermatomes, patient is not immunocompromised, he will be started on Valacyclovir for 7 days.He was given education about the disease prior to discharge. Management plan was discussed in detail with patient Education was provided.
--- NOTE | 2017-03-11 14:24 | PN ---
DATE: 03/11/2017 The patient is in bed, in no acute distress, nontoxic. PHYSICAL EXAMINATION: VITAL SIGNS: Temperature is 99, blood pressure is 140/80, respiratory rate of 16. HEENT: Unremarkable. NECK: Supple. LUNGS: Have decreased breath sounds. HEART: Normal S1, S2. ABDOMEN: Soft, nontender. LABORATORY EXAMINATION: Reveals a white count of 3.4, hemoglobin of 13, platelets are noted. Sed ra te is 30. Chemistries are noted. Procalcitonin less than 0.05. Urinalysis is noted. Microbiology reveals the blood cultures, urine cultures negative. CAT scan of the chest is noted, dense bilateral perihilar infiltrates, most consistent with a pneumonia. ASSESSMENT AND PLAN: A 61-year-old male with bilateral community-acquired pneumonia, cultures negati ve, procal negative. May use p.o. Levaquin. The patient was seen earlier this morning. The patient 's remainder of the workup can be followed as outpatient including ANCA, and HIV studies with repeat imaging in 2-3 weeks. Donato Medina MD cc: [id number] TT: 03/11/2017 14:23:36 Confirmation # [id number] Dictation # [id number]
== END 2017-03-11 13:57 | disposition home or self-care (01) | DRG 90 ==
LOC: ED 16:47 → ERH 19:36 → 5RSO 21:21
PROVIDERS: ADMIT Internal Medicine; ATTEND Internal Medicine
DX: J18.9 Pneumonia, unspecified organism (principal); B02.9 Zoster without complications; N28.9 Disorder of kidney and ureter, unspecified; Z87.01 Personal history of pneumonia (recurrent); Z80.3 Family history of malignant neoplasm of breast; Z82.5 Family history of asthma and other chronic lower respiratory diseases; Z88.0 Allergy status to penicillin

== ENCOUNTER 2017-03-23 09:43 | Inpatient (IN) | payer MEDICAID, OTHER ==
[2017-03-23] MEDS ORDERED: Oxycodone/Acetaminophen 5/325 mg Tab PO STA (10:34)
[2017-03-23] MEDS ORDERED: Sodium Chloride 0.9% 1,000 ML IV STA (10:34)
--- NOTE | 2017-03-23 10:38 | ED PDOC ---
Arrival/HPI - General Historian: Patient <Aaron Bonilla - Last Filed: 03/23/17 15:29> <AdiaDannydestin - Last Filed: 03/23/17 17:51> - General Chief Complaint: Weakness/Neurological Deficit Time Seen by Provider: 03/23/17 10:24 - History of Present Illness Narrative History of Present Illness (Text): 03/23/17 10:34 61 y/o male, pmh including pneumonia and shingles, penicillin allergy, c/o rt. sided posterior back pain and feeling fatigue plus shortness of breath x 2 weeks. Upon reviewing the labs, pt. was admitted for pneumonia on the end of . During the admission, he was found to have Influenza A positive, Negative HIV, chest xray positive for pneumonia, was on the levaquin and rocephine. Pt. stated that he feels fatigue and tired which he is unable to follow up with the pmd partially due to the insurance problem as he is on the [facility] care, feeling shortness of breath after walking for a distance which this is not himself. pt. stated that he is here because he has the pain on the sided back with feeling fatigue, shortness of breath, no fever or chills, had course of valtrex already, no dizziness, no palpitation, no chest pain, no shortness of breath, no other medical or psychological complaints. (Aaron Bonilla) Past Medical History - Provider Review Nursing Documentation Reviewed: Yes - Cardiac Hx Cardiac Disorders: No - Pulmonary Hx Pneumonia: Yes (2013) - Neurological Hx Neurological Disorder: No - HEENT Hx HEENT Disorder: No - Renal Hx Renal Disorder: No - Endocrine/Metabolic Hx Endocrine Disorders: No - Hematological/Oncological Hx Shingles: Yes - Integumentary Other/Comment: SHINGLES - Musculoskeletal/Rheumatological Hx Musculoskeletal Disorders: No Hx Falls: No - Gastrointestinal Hx Gastrointestinal Disorders: No - Genitourinary/Gynecological Hx Genitourinary Disorders: No - Psychiatric Hx Psychophysiologic Disorder: No Hx Substance Use: No - Surgical History Other/Comment: trach 2013 <Aaron Bonilla - Last Filed: 03/23/17 15:29> Family/Social History - Physician Review Nursing Documentation Reviewed: Yes Family/Social History: Unknown Family HX Smoking Status: Never Smoked Hx Alcohol Use: No Hx Substance Use: No <Aaron Bonilla - Last Filed: 03/23/17 15:29> Allergies/Home Meds <Aaron Bonilla - Last Filed: 03/23/17 15:29> <Amish Cheek - Last Filed: 03/23/17 17:51> Allergies/Adverse Reactions: Allergies Penicillins Allergy (Verified 03/23/17 09:59) ANAPHYLAXIS Home Medications: Home Meds Medication Instructions Recorded Confirmed No Known Home Med 03/23/17 03/23/17 Review of Systems - Review of Systems Constitutional: Fatigue. absent: Fevers Eyes: absent: Vision Changes ENT: absent: Hearing Changes Respiratory: SOB. absent: Cough Cardiovascular: absent: Chest Pain Gastrointestinal: absent: Abdominal Pain, Nausea, Vomiting Musculoskeletal: Back Pain Skin: Rash. absent: Pruritis, Skin Lesions Neurological: absent: Headache, Dizziness <Aaron Bonilla - Last Filed: 03/23/17 15:29> Physical Exam Vital Signs Reviewed: Yes Temperature: Afebrile Blood Pressure: Normal Pulse: Regular Respiratory Rate: Normal Appearance: Positive for: Well-Appearing, Non-Toxic, Uncomfortable Pain Distress: Moderate Mental Status: Positive for: Alert and Oriented X 3 - Systems Exam Head: Present: Atraumatic, Normocephalic Pupils: Present: PERRL Extroacular Muscles: Present: EOMI Conjunctiva: Present: Normal Mouth: Present: Moist Mucous Membranes Neck: Present: Normal Range of Motion Respiratory/Chest: Present: Clear to Auscultation, Good Air Exchange, Decreased Breath Sounds (rt. lower/middle lobe), Rales (rt. lower/middle lobe), Rhonchi ( rt. lower/middle lobe). No: Respiratory Distress, Accessory Muscle Use, Wheezes , Retracting Cardiovascular: Present: Regular Rate and Rhythm, Normal S1, S2. No: Murmurs Abdomen: Present: Normal Bowel Sounds. No: Tenderness, Distention, Peritoneal Signs Back: Present: Normal Inspection Upper Extremity: Present: Normal Inspection. No: Cyanosis, Edema Lower Extremity: Present: Normal Inspection. No: Edema Neurological: Present: GCS=15, Speech Normal, Motor Func Grossly Intact, Gait Normal, Memory Normal Skin: Present: Warm, Dry, Rashes (Rt. lateral midthoracic region visible patchy resolving rash following the dermatome region, no cellulitis or streaking, no ulcer. ), Normal Color Psychiatric: Present: Alert, Oriented x 3, Normal Insight, Normal Concentration <Aaron Bonilla - Last Filed: 03/23/17 15:29> Medical Decision Making - Lab Interpretations I have reviewed the lab results: Yes Interpretation: No clinic. lab abnormalty - RAD Interpretation Drill Press Set Up Operator: Radiologist - EKG Interpretation Interpreted by ED Physician: Yes Type: 12 lead EKG Comparison: Com.w/previous EKG <Aaron Bonilla - Last Filed: 03/23/17 15:29> <Amish Cheek - Last Filed: 03/23/17 17:51> ED Course and Treatment: 03/23/17 10:38 -labs -chest xray -IVF/toradol/prednisone -Observe and reassess 03/23/17 13:17 -Labs are non-significant -Chest xray show no interval change. -EKG:NSR @ 62 BPM, no ST elevation or depression, no T wave inversion compared with previous ekg. -Pain resolved with the toradol and prednisone, exertional shortness of breath still remains. -Pt. has no fever/cough, no chest pain but there is shortness of breath. Blood culture negative from the previous visit. Case discussed and examined the patient with Dr. Cheek which recommend observation admission until the patient can have re-evaluation 03/23/17 15:29 -Dr. Cheek spoke to the hospitalist Dr. Christy Lazo, agreed on the plan for observation. Dr. Cheek will put in the admission. (Aaron Bonilla) 03/23/17 17:47 Patient noted to be dyspneic with exertion in ED and with conversations. Chest xray with persistent bilateral infiltrates. Nebulizer given. Denies exertional chest pain. Given persistent symptoms, despite course of antibiotics, will admit due to failure of outpatient treatment/follow-up and lack of improvement in cxr findings. Treatment plan reviewed with patient agreeable to admission. (Amish Cheek) - Lab Interpretations Lab Results: 03/23/17 10:55 03/23/17 10:55 Lab Results 03/23/17 14:30: NT-Pro-B Natriuret Pep 22.7 03/23/17 10:55: Sodium 140, Potassium 4.4, Chloride 101, Carbon Dioxide 29, Anion Gap 14, BUN 18, Creatinine 1.2, Est GFR ( Amer) > 60, Est GFR (Non- Af Amer) > 60, Random Glucose 87, Calcium 9.6, Total Bilirubin 1.1, AST 46, ALT 51, Alkaline Phosphatase 82, Total Protein 9.2 H, Albumin 4.4, Globulin 4.9, Albumin/Globulin Ratio 0.9 L 03/23/17 10:55: WBC 4.1 L D, RBC 5.08, Hgb 14.1, Hct 40.7 L, MCV 80.1, MCH 27.8 , MCHC 34.6, RDW 14.3, Plt Count 267, MPV 9.2, Gran % 46.1 L, Lymph % (Auto) 26.7, [place] % (Auto) 13.0 H, Eos % (Auto) 13.7 H, Baso % (Auto) 0.5, Gran # 1.88 , Lymph # 1.1 L, [place] # 0.5, Eos # 0.6, Baso # 0.02 - RAD Interpretation Radiology Orders: 03/23/17 10:33 CHEST PORTABLE [RAD] Stat HISTORY: history of rt. pneumonia 2 weeks ago COMPARISON: 03/08/2017. Portable chest. 03/10/2017 CT thorax. FINDINGS: LUNGS: Persistent bilateral perihilar infiltrates. No appreciable interval change. PLEURA: No significant pleural effusion identified, no pneumothorax apparent. CARDIOVASCULAR: Normal. OSSEOUS STRUCTURES: No significant abnormalities. VISUALIZED UPPER ABDOMEN: Normal. OTHER FINDINGS: None. IMPRESSION: Stable bilateral alveolar infiltrates, at airspace disease. No appreciable interval change. (Aaron Bonilla) - EKG Interpretation EKG Interpretation (Text): 03/23/17 15:03 NSR @ 62 BPM, no ST elevation or depression, no T wave inversion compared with previous ekg. (Aaron Bonilla) - Medication Orders Current Medication Orders: Albuterol/Ipratropium (Duoneb 3 Mg/0.5 Mg (3 Ml) Ud) 3 ml IH [id number] PRN PRN Reason: Shortness of Breath Levofloxacin (Levaquin) 750 mg PO DAILY BRITTNY Valacyclovir HCl (Valtrex) 1 gm PO TID BRITTNY PRN Reason: Protocol Discontinued Medications Albuterol/Ipratropium (Duoneb 3 Mg/0.5 Mg (3 Ml) Ud) 3 ml IH STAT STA Stop: 03/23/17 13:44 Last Admin: 03/23/17 14:03 Dose: 3 ml Sodium Chloride (Sodium Chloride 0.9%) 1,000 mls @ 999 mls/hr IV .Q1H1M STA Stop: 03/23/17 11:34 Last Admin: 03/23/17 10:55 Dose: 999 mls/hr Ketorolac Tromethamine (Toradol) 30 mg IVP STAT STA Stop: 03/23/17 10:35 Last Admin: 03/23/17 10:55 Dose: 30 mg Re-Assess: [facility] Pain Assessment Document 03/23/17 11:55 ALA (Rec: 03/23/17 14:03 ALA [id number]) Pain Reassessment Is this a pain reassessment? Yes Oxycodone/Acetaminophen (Percocet 5/325 Mg Tab) 1 tab PO STAT STA Stop: 03/23/17 10:35 Last Admin: 03/23/17 10:54 Dose: 1 tab Re-Assess: [facility] Pain Assessment Document 03/23/17 11:54 ALA (Rec: 03/23/17 14:03 ALA [id number]) Pain Reassessment Is this a pain reassessment? Yes Prednisone (Prednisone Tab) 60 mg PO STAT ONE Stop: 03/23/17 10:34 Last Admin: 03/23/17 10:55 Dose: 60 mg - PA / ENVELOPE STUFFER / Resident Statement RADHA has reviewed & agrees with the documentation as recorded. <Aaron Bonilla - Last Filed: 03/23/17 15:29> - PA / ENVELOPE STUFFER / Resident Statement RADHA has reviewed & agrees with the documentation as recorded. RADHA has examined the patient and agrees with the treatment plan. <Amish Cheek - Last Filed: 03/23/17 17:51> Disposition/Present on Arrival - Present on Arrival Any Indicators Present on Arrival: No History of DVT/PE: No History of Uncontrolled Diabetes: No Urinary Catheter: No History of Decub. Ulcer: No History Surgical Site Infection Following: None - Disposition Have Diagnosis and Disposition been Completed?: Yes Disposition Time: :17 Patient Plan: Admission, Observation <Aaron Bonilla - Last Filed: 03/23/17 15:29> <Amish Cheek - Last Filed: 03/23/17 17:51> - Disposition Diagnosis: Shortness of breath, Shingles (herpes zoster) polyneuropathy, Abnormal chest x- ray Disposition: HOSPITALIZED Patient Problems: Current Active Problems Problem Status Onset Abnormal chest x-ray Acute Shingles (herpes zoster) polyneuropathy Acute Shortness of breath Acute Condition: STABLE
[2017-03-23 10:56] LABS: ADD MANUAL DIFF? NO
[2017-03-23 11:00] LABS: BASO # 0.02 K/mm3 (0.0-2.0); BASO % 0.5 % (0.0-3.0); EOS # 0.6 (0.0-0.7); EOS % 13.7 % (1.5-5.0); GRAN # 1.88 (1.4-6.5); GRAN % 46.1 % (50.0-68.0); HEMATOCRIT 40.7 % (42.0-52.0); LYMPH # 1.1 (1.2-3.4); LYMPH % 26.7 % (22.0-35.0); MEAN CELL VOLUME 80.1 fL (80.0-105.0); MEAN CORPUSCULAR HEMOGLOBIN 27.8 pg (25.0-35.0); MEAN CORPUSCULAR HGB CONC 34.6 g/dl (31.0-37.0); MEAN PLATELET VOLUME 9.2 fl (7.0-11.0); MONO # 0.5 (0.1-0.6); PLATELET COUNT 267 10^3/uL (120.0-450.0); RED CELL DISTRIBUTION WIDTH 14.3 % (11.5-14.5); WHITE BLOOD COUNT 4.1 10^3/ul (4.5-11.0)
[2017-03-23 11:10] LABS: ALB/GLOB RATIO 0.9 (1.1-1.8); ALKALINE PHOSPHATASE 82 U/L (38-133); ALT/SGPT 51 U/L (7-56); AST/SGOT 46 U/L (15-59); BILIRUBIN,TOTAL 1.1 mg/dL (0.2-1.3); BLOOD UREA NITROGEN 18 mg/dL (7-21); CALCIUM 9.6 mg/dL (8.4-10.5); CARBON DIOXIDE 29 mmol/L (21-33); CHLORIDE 101 mmol/L (98-107); GFR AFRICAN-AMERICAN > 60; GLUCOSE,RANDOM 87 mg/dL (70-110); POTASSIUM 4.4 mmol/L (3.6-5.0); SODIUM 140 mmol/L (132-148); TOTAL PROTEIN 9.2 g/dL (5.8-8.3)
--- NOTE | 2017-03-23 12:57 | RAD ---
HISTORY: history of rt. pneumonia 2 weeks ago COMPARISON: 03/08/2017. Portable chest. 03/10/2017 CT thorax. FINDINGS: LUNGS: Persistent bilateral perihilar infiltrates. No appreciable interval change. PLEURA: No significant pleural effusion identified, no pneumothorax apparent. CARDIOVASCULAR: Normal. OSSEOUS STRUCTURES: No significant abnormalities. VISUALIZED UPPER ABDOMEN: Normal. OTHER FINDINGS: None. IMPRESSION: Stable bilateral alveolar infiltrates, at airspace disease. No appreciable interval change.
[2017-03-23] MEDS ORDERED: Albuterol-Ipratrop 3 mg / 0.5 (3 ml) UD IH STA (13:43)
[2017-03-23] MEDS ORDERED: Albuterol-Ipratrop 3 mg / 0.5 (3 ml) UD IH PRN (17:16)
--- NOTE | 2017-03-23 18:40 | CP.PCM.HP ---
<Sanjay Rubio - Last Filed: 03/23/17 21:29> History of Present Illness - History of Present Illness History of Present Illness: HPI: Patient is a 61 year old male with past medical history of shingles that presented c/o shortness of breath that have been exacerbated within the last 4 days. Patient states that he had a recent outbreak of shingles and pneumonia for which he was admitted to [facility] and treated with valtrex , levaquin and ceftriaxone. Patient reports his symptoms are associated with right-sided thoracic back pain that extends to his sternum as well as fatigue. He states that his shingles outbreak has been improving and the pain has substantially decreased. Chest xray in the ED revealed stable bilateral alveolar infiltrates, no appreciable interval change. He denied chest pain, palpitations, abdominal pain, nausea, vomiting, fever, chills, cough, focal weakness, numbness, tingling. 12point ROS as per HPI above, otherwise negative PMHx: shingles, pneumonia PSHx: denies Allergies: Penicillin (rash) Medications: denies Social Hx: Denies illicit drug and alcohol use Family Hx: Mother: Breast Ca; Father: Asthma Present on Admission - Present on Admission Any Indicators Present on Admission: No Past Patient History - Past Social History Smoking Status: Never Smoked - CARDIAC Hx Cardiac Disorders: No - PULMONARY Hx Pneumonia: Yes (2013) - NEUROLOGICAL Hx Neurological Disorder: No - HEENT Hx HEENT Problems: No - RENAL Hx Chronic Kidney Disease: No - ENDOCRINE/METABOLIC Hx Endocrine Disorders: No - HEMATOLOGICAL/ONCOLOGICAL Hx Shingles: Yes - INTEGUMENTARY Other/Comment: SHINGLES - MUSCULOSKELETAL/RHEUMATOLOGICAL Hx Musculoskeletal Disorders: No Hx Falls: No - GASTROINTESTINAL Hx Gastrointestinal Disorders: No - GENITOURINARY/GYNECOLOGICAL Hx Genitourinary Disorders: No - PSYCHIATRIC Hx Psychophysiologic Disorder: No Hx Substance Use: No - SURGICAL HISTORY Other/Comment: trach 2014 Meds Allergies/Adverse Reactions: Allergies Allergy/AdvReac Type Severity Reaction Status Date / Time Penicillins Allergy ANAPHYLAXIS Verified 03/23/17 19:43 Physical Exam - Constitutional Appears: Non-toxic, No Acute Distress - Head Exam Head Exam: ATRAUMATIC, NORMAL INSPECTION, NORMOCEPHALIC - Eye Exam Eye Exam: EOMI, PERRL - ENT Exam ENT Exam: Mucous Membranes Moist - Respiratory Exam Respiratory Exam: Clear to Auscultation Bilateral. absent: Rales, Rhonchi, Wheezes - Cardiovascular Exam Cardiovascular Exam: RRR, +S1, +S2. absent: Gallop, Rubs - Neurological Exam Neurological exam: Alert, CN II-XII Intact, Oriented x3 - Psychiatric Exam Psychiatric exam: Normal Affect, Normal Mood - Skin Skin Exam: Dry, Intact, Warm Additional comments: crusted lesion along the T4 distribution extending from the back to the sternum Results - Vital Signs Recent Vital Signs: Last Vital Signs Temp 98.1 F 03/23/17 18:08 Pulse 72 03/23/17 18:08 Resp 18 03/23/17 18:08 BP 137/81 03/23/17 18:08 Pulse Ox 98 03/23/17 18:08 - Labs Result Diagrams: 03/23/17 10:55 03/23/17 10:55 Assessment & Plan - Assessment and Plan (Free Text) Plan: 61yo male with history of shingles and pneumonia presents c/o shortness of breath 1. Unresolving pneumonia -CXR reviewed; revealed bilateral alveolar infiltrates -Visible crusted lesions at T4 dermatomal pattern extending from the right side of his back to his sternum -Blood and sputum cultures pending -Procalcitonin pending -ESR/CRP pending -Echocardiogram pending -Chest CT pending -Patient started on levaquin 750mg PO daily and duoneb PRN -ID consulted - Dr. Medina 2. Shingles -Patient started on valtrex 1g PO TID Patient seen and case discussed with attending, Dr. Lazo - Date & Time Date: 03/23/17 Time: 21:12 <Amira Lazo - Last Filed: 03/24/17 13:35> Results - Vital Signs Recent Vital Signs: Last Vital Signs Temp 98.2 F 03/24/17 06:00 Pulse 77 03/24/17 06:00 Resp 17 03/24/17 06:00 BP 148/85 03/24/17 06:00 Pulse Ox 98 03/24/17 06:00 - Labs Result Diagrams: 03/24/17 07:15 03/24/17 07:15 Labs: Laboratory Results - last 24 hr 03/23/17 03/23/17 03/23/17 19:00 19:00 19:00 WBC RBC Hgb Hct MCV MCH MCHC RDW Plt Count MPV Gran % Lymph % (Auto) [place] % (Auto) Eos % (Auto) Baso % (Auto) Gran # Lymph # [place] # Eos # Baso # ESR 12 D-Dimer, Quantitative Sodium Potassium Chloride Carbon Dioxide Anion Gap BUN Creatinine Est GFR ( Amer) Est GFR (Non-Af Amer) Random Glucose Calcium Total Bilirubin AST ALT Alkaline Phosphatase C-React Prot High Sens 3.39 H Total Protein Albumin Globulin Albumin/Globulin Ratio Procalcitonin < 0.05 L 03/23/17 03/24/17 03/24/17 19:00 07:15 07:15 WBC 5.5 D RBC 4.76 Hgb 13.0 L Hct 37.7 L MCV 79.2 L MCH 27.3 MCHC 34.5 RDW 14.5 Plt Count 270 MPV 9.2 Gran % 72.6 H Lymph % (Auto) 17.2 L [place] % (Auto) 9.8 H Eos % (Auto) 0.4 L Baso % (Auto) 0.0 Gran # 4.01 Lymph # 1.0 L [place] # 0.5 Eos # 0.0 Baso # 0.00 ESR D-Dimer, Quantitative 1.31 H Sodium 136 Potassium 4.6 Chloride 102 Carbon Dioxide 24 Anion Gap 15 BUN 23 H Creatinine 1.3 Est GFR ( Amer) > 60 Est GFR (Non-Af Amer) 56 Random Glucose 114 H Calcium 9.2 Total Bilirubin 0.6 AST 30 ALT 43 Alkaline Phosphatase 79 C-React Prot High Sens Total Protein 8.1 Albumin 4.0 Globulin 4.0 Albumin/Globulin Ratio 1.0 L Procalcitonin Attending/Attestation - Attestation I have personally seen and examined this patient.: Yes I have fully participated in the care of the patient.: Yes I have reviewed all pertinent clinical information: Yes Notes (Text): I have seen and examined patient at bedside. I agree with the H&P outlined by the resident with the following additions/ exceptions: This is 61 year old male with history of recent discharge from the hospital with viral pneumonia (procal <0.05) and was also diagnosed with shingles at that time presented today for evaluation of dyspnea at rest, dyspnea on exertion , mild cough with whitish scant sputum production and CXR findings of persistent bilateral alveolar infiltrates. On exam, lungs are Clear to auscultation. Patient reports completing the antibiotic course which included inpatient rocephin and zithromax followed by levaquin. Patient also mentions that there was a subjective improvement few days after taking antibiotics but symptoms reappeared. Will check ESR, CRP, procal, d dimer, echo to r/o any other cause of dyspnea. Will start levaquin for now. He also has visibly crusted lesions at T4 dermatomal pattern on right side of his back and chest which is painful. He has already completed valtrex for 7 days. Will consult ID. Upon discharge patient will follow up with Dr Jennings. Dr Amira Lazo
[2017-03-23] MEDS: levoFLOXacin 750 MG TAB PO SCH (19:23)
[2017-03-23 22:33] VITALS: BMI 29.8
[2017-03-23] MEDS ORDERED: Pneumococcal 23-Valent Vaccine IM ONE (22:34)
[2017-03-24 07:47] LABS: ADD MANUAL DIFF? NO
[2017-03-24 07:56] LABS: EOS % 0.4 % (1.5-5.0); GRAN # 4.01 (1.4-6.5); GRAN % 72.6 % (50.0-68.0); HEMATOCRIT 37.7 % (42.0-52.0); LYMPH % 17.2 % (22.0-35.0); MEAN CELL VOLUME 79.2 fL (80.0-105.0); MEAN CORPUSCULAR HEMOGLOBIN 27.3 pg (25.0-35.0); MEAN CORPUSCULAR HGB CONC 34.5 g/dl (31.0-37.0); MEAN PLATELET VOLUME 9.2 fl (7.0-11.0); MONO # 0.5 (0.1-0.6); MONO % 9.8 % (1.0-6.0); PLATELET COUNT 270 10^3/uL (120.0-450.0); RED CELL DISTRIBUTION WIDTH 14.5 % (11.5-14.5); WHITE BLOOD COUNT 5.5 10^3/ul (4.5-11.0)
[2017-03-24 08:15] LABS: ALKALINE PHOSPHATASE 79 U/L (38-133); ALT/SGPT 43 U/L (7-56); AST/SGOT 30 U/L (15-59); BILIRUBIN,TOTAL 0.6 mg/dL (0.2-1.3); BLOOD UREA NITROGEN 23 mg/dL (7-21); CALCIUM 9.2 mg/dL (8.4-10.5); CARBON DIOXIDE 24 mmol/L (21-33); GFR AFRICAN-AMERICAN > 60; GLUCOSE,RANDOM 114 mg/dL (70-110); POTASSIUM 4.6 mmol/L (3.6-5.0); SODIUM 136 mmol/L (132-148); TOTAL PROTEIN 8.1 g/dL (5.8-8.3)
[2017-03-24 08:28] LABS: CHLORIDE 102 mmol/L (95-110)
[2017-03-24] MEDS ORDERED: Iohexol 350 MG/100 ML VIAL ONE (08:46)
[2017-03-24] MEDS: levoFLOXacin 750 MG TAB PO SCH (09:50)
--- NOTE | 2017-03-24 10:00 | CARD ---
APPROVED REPORT EKG Measurement Heart [id number] <Conclusion> Normal sinus rhythm Normal ECG No change
--- NOTE | 2017-03-24 13:53 | CP.PCM.PN ---
Subjective - Date & Time of Evaluation Date of Evaluation: 03/24/17 Time of Evaluation: 08:00 - Subjective Subjective: I have seen and examined patient at bedside. Patient is sitting up on the bed in no apparent distress. Denies cough, fever, abdominal pain, constipation, diarrhea, dyspnea at rest or LE swelling. He reports pain in the area of shingles rash. Has mild dysnea on exertion. Appetite is good. Objective - Vital Signs/Intake and Output Vital Signs (last 24 hours): Temp Pulse Resp BP Pulse Ox 98.1 F 72 18 137/81 98 03/23/17 22:16 03/23/17 22:16 03/23/17 22:16 03/23/17 22:16 03/23/17 18:08 Intake and Output: 03/24/17 03/24/17 06:59 18:59 Intake Total 540 Balance 540 - Medications Medications: Current Medications Albuterol/Ipratropium (Duoneb 3 Mg/0.5 Mg (3 Ml) Ud) 3 ml IH [id number] PRN PRN Reason: Shortness of Breath Levofloxacin (Levaquin) 750 mg PO DAILY [facility] Last Admin: 03/23/17 19:23 Dose: 750 mg Valacyclovir HCl (Valtrex) 1 gm PO TID [facility] PRN Reason: Protocol Last Admin: 03/23/17 19:23 Dose: 1 gm - Labs Labs: 03/24/17 07:15 03/24/17 07:15 - Constitutional Appears: Well, Non-toxic, No Acute Distress - Head Exam Head Exam: ATRAUMATIC, NORMAL INSPECTION, NORMOCEPHALIC - Eye Exam Eye Exam: EOMI, Normal appearance Pupil Exam: PERRL - ENT Exam ENT Exam: Mucous Membranes Moist - Neck Exam Neck Exam: Normal Inspection - Respiratory Exam Respiratory Exam: Clear to Ausculation Bilateral, NORMAL BREATHING PATTERN - Cardiovascular Exam Cardiovascular Exam: REGULAR RHYTHM, +S1, +S2 - GI/Abdominal Exam GI & Abdominal Exam: Soft, Normal Bowel Sounds. absent: Distended, Tenderness - Rectal Exam Rectal Exam: Deferred - Extremities Exam Extremities Exam: Full ROM, Normal Capillary Refill, Normal Inspection - Back Exam Back Exam: NORMAL INSPECTION - Neurological Exam Neurological Exam: Alert, Awake, CN II-XII Intact, Normal Gait, Oriented x3 Neuro motor strength exam: Left Upper Extremity: 5, Right Upper Extremity: 5, Left Lower Extremity: 5, Right Lower Extremity: 5 - Psychiatric Exam Psychiatric exam: Normal Affect, Normal Mood - Skin Additional comments: Visible hyperpigmented tender crusted lesions at T4 dermatomal pattern extending from the right side of his back to his sternum Assessment and Plan - Assessment and Plan (Free Text) Plan: This is 61 year old male with history of recent discharge from the hospital with viral pneumonia (procal <0.05) and was also diagnosed with shingles at that time presented 1 day ago for evaluation of dyspnea at rest, dyspnea on exertion, mild cough with whitish scant sputum production and CXR findings of persistent bilateral alveolar infiltrates. Patient reports completing the antibiotic course which included inpatient rocephin and zithromax followed by levaquin. Patient also mentions that there was a subjective improvement few days after taking antibiotics but symptoms reappeared. 1-Non resolving pneumonia: CXR showed bilateral alveloar infiltrates. Procal < 0.05. ESR 12 and CRP 3.3. Cultures pending. Ddimer found to be elevated however patient doesnt appear sob today and does not have hypoxia or tachycardia. CT chest pending which will help us to rule out other non infectious etiologies. WAYNE, GBM, MPO, proteinase3 and HIV was negative on his last admission. He is not on any medications at home. 2-Herpes Zoster: He is not immunocompromised. Completed 7 days of valtrex. He has acute neuritis. Will start tramadol. 3-GI prophylaxis: Start pepcid 4-DVT prophylaxis: start hep sc q12 5-Dispo: Upon discharge patient will follow up with Dr Jennings
--- NOTE | 2017-03-24 15:12 | CT ---
PROCEDURE: CT Chest with contrast HISTORY: unresolving pneumonia COMPARISON: None. TECHNIQUE: Contiguous axial images were obtained through the chest with intravenous contrast enhancement. Sagittal and coronal reconstructions were performed. Maximum intensity projection (MIP) reconstructed images in the following planes: Axial only. IV contrast: 100 cc Omnipaque 350 Radiation dose (DLP): 538.03 mGy-cm. This CT exam was performed using one or more of the following dose reduction techniques: Automated exposure control, adjustment of the mA and/or kV according to patient size, and/or use of iterative reconstruction technique. FINDINGS: LUNGS: No change perihilar alveolar consolidative changes bilaterally. Innumerable small pulmonary nodules also identified. MEDIASTINUM: Unremarkable thoracic aorta. No aneurysm or dissection. Cardiomegaly. No evidence of acute, significant cardiovascular disease. Main pulmonary artery unremarkable. No vascular congestion. No central consolidation bilaterally is inseparable from hilar and mediastinal lymph nodes. Enlarged subcarinal lymph nodes also identified. PLEURA: No pleural fluid. No pneumothorax. BONES: No fracture. No destructive lesion. UPPER ABDOMEN: Incompletely visualized hepatomegaly and splenomegaly. OTHER FINDINGS: None. IMPRESSION: Dense bilateral alveolar consolidative changes inseparable from adjacent hilar adenopathy. Additional mediastinal and subcarinal lymphadenopathy noted. Multiple pulmonary nodules are stable. Most likely etiologies include inflammatory/ infectious and neoplastic.
--- NOTE | 2017-03-24 18:23 | CON ---
DATE: 03/24/2017 The patient is in room 367, bed 2, was seen earlier today. CHIEF COMPLAINT: Weakness and shortness of breath times several days. HISTORY OF PRESENT ILLNESS: This is a 61-year-old male who has had recent hospitalization on 017 and discharge on 03/11/2017. At that time, patient was admitted with influenza A and found to oh ve a pneumonia and patient found to have zoster. The patient was discharged. A history of pneumonia and history of tracheostomy in the past with a recent hospitalization with herpes zoster and patient now is admitted with no fevers, no chills. He is complaining of mild shortness of breath. No abdom inal pain, no diarrhea or constipation, no bright red blood per rectum, no melena. No dysuria. PAST MEDICAL HISTORY: Significant for pneumonia, a recent diagnosis of zoster, a recent diagnosis of another pneumonia and recent diagnosis of influenza A on 03/09 and 1:64 titer serology. ALLERGIES: THE PATIENT IS ALLERGIC TO PENICILLIN, IT GIVES HIM A RASH. MEDICATIONS AT HOME: Noted. PHYSICAL EXAMINATION: GENERAL: The patient is in bed, no acute distress, nontoxic. VITAL SIGNS: Temperature of 98, blood pressure is 130/80, respiratory rate of 18, heart rate of 88. HEENT: Unremarkable. NECK: Supple. LUNGS: Have decreased breath sounds. HEART: Normal S1, S2. ABDOMEN: Soft, nontender. EXTREMITIES: Examination of the zoster is dry. No evidence of active zoster. LABORATORY EXAMINATION: Reveals a white count of 5.5, hemoglobin of 13 and platelets of 270. A sed rate is 12 and D-dimer was 1.31. The chemistries reveal the BUN of 18, creatinine of 1.2, procalcito imtiaz from yesterday was 0.05. In the previous admissions it had been less than 0.05 times 3 procalcit onins. C-reactive protein is elevated at 3.39. The patient also had an HIV which was negative. The patient also had ankle serology which was negative and proteinase 3 (PR3) was also negative and myel operoxidase antibody was negative and glomerular basement membrane IgG [facility]. The patient had a CAT scan of the chest yesterday read by Dr. Jermaine Stevens, which ronda wed dense bibasilar alveolar consolidative changes inseparable from adjacent hilar adenopathy, additi onal mediastinal lymphadenopathy is noted, multiple pulmonary nodules are stable and Dr. Stevens stat es that most likely the etiologies could be inflammatory, could be infectious and could be neoplastic . Dr. Lazo's progress note is reviewed and history and physical examination is also reviewed. ASSESSMENT AND PLAN: This is a 61-year-old male with history of multiple pneumonias, more and more r ecent one with influenza A, now with zoster, HIV negative and positive CAT scan findings of nodules a nd mediastinal nodes should have pulmonary evaluation. Currently, on p.o. Levaquin and the patient i s also on prednisone 1 dose, currently on Levaquin. Should have pulmonary consultation and consultat ion with Dr. Garo Wells to review the mediastinal and see if it is significant for a CAT scan guided -biopsy. The patient's CBC is essentially unremarkable and awaiting for a pulmonary consultation and from Dr. Garo Wells a consultation regarding possible CAT scan directed-biopsy of the mediastinal n odes as influenza A does not give mediastinal nodes. Will follow closely with you. Donato Medina MD cc: [id number] TT: 03/24/2017 18:22:46 Confirmation # [id number] Dictation # [id number] mn
[2017-03-25] MEDS ORDERED: Alum-Mag Hydrox-Simethicone Susp (30 mL) PO PRN (04:25)
[2017-03-25] MEDS ORDERED: Bismuth Subsalicylate 262 mg/15 ml Sus (240 ml) PO ONE (04:25)
[2017-03-25] MEDS ORDERED: Pantoprazole 20 mg EC Tab PO STA (04:26)
[2017-03-25 08:57] LABS: ADD MANUAL DIFF? NO
[2017-03-25 09:04] LABS: BASO # 0.02 K/mm3 (0.0-2.0); BASO % 0.4 % (0.0-3.0); EOS # 0.4 (0.0-0.7); EOS % 6.8 % (1.5-5.0); GRAN # 3.17 (1.4-6.5); GRAN % 60.2 % (50.0-68.0); LYMPH # 1.3 (1.2-3.4); LYMPH % 24.3 % (22.0-35.0); MEAN CELL VOLUME 80.2 fL (80.0-105.0); MEAN CORPUSCULAR HEMOGLOBIN 27.4 pg (25.0-35.0); MEAN CORPUSCULAR HGB CONC 34.1 g/dl (31.0-37.0); MEAN PLATELET VOLUME 9.2 fl (7.0-11.0); MONO # 0.4 (0.1-0.6); MONO % 8.3 % (1.0-6.0); PLATELET COUNT 274 10^3/uL (120.0-450.0); RED CELL DISTRIBUTION WIDTH 14.9 % (11.5-14.5); WHITE BLOOD COUNT 5.3 10^3/ul (4.5-11.0)
[2017-03-25] MEDS: levoFLOXacin 750 MG TAB PO SCH (09:09)
[2017-03-25 09:24] LABS: BILIRUBIN,TOTAL 0.8 mg/dL (0.2-1.3); CALCIUM 9.7 mg/dL (8.4-10.5); POTASSIUM 4.1 mmol/L (3.6-5.0)
--- NOTE | 2017-03-25 14:18 | CP.PCM.PN ---
<Gabriela Carter - Last Filed: 03/25/17 14:24> Subjective - Date & Time of Evaluation Date of Evaluation: 03/25/17 Time of Evaluation: 13:00 - Subjective Subjective: Pt was seen and examined in chair. Pt has mild complaints of burping and hiccups. Pt otherwise has no acute complaints. No acute overnight events as per nursing staff. Pt denied fever, chills, abdominal pains, chest pains, n/v/d/c. Objective - Vital Signs/Intake and Output Vital Signs (last 24 hours): Temp Pulse Resp BP Pulse Ox 97.9 F 59 L 20 132/87 98 03/25/17 08:37 03/25/17 08:37 03/25/17 08:37 03/25/17 08:37 03/25/17 08:37 Intake and Output: 03/25/17 03/25/17 06:59 18:59 Intake Total 480 Balance 480 - Medications Medications: Current Medications Al Hydrox/Mg Hydrox/Simethicone (Maalox Plus 30 Ml) 30 ml PO DAILY PRN PRN Reason: Indigestion / Heartburn Albuterol/Ipratropium (Duoneb 3 Mg/0.5 Mg (3 Ml) Ud) 3 ml IH [id number] PRN PRN Reason: Shortness of Breath Famotidine (Pepcid) 40 mg PO DAILY [facility] Last Admin: 03/25/17 09:09 Dose: 40 mg Heparin Sodium (Porcine) (Heparin) 5,000 units SC Q12 BRITTNY PRN Reason: Protocol Last Admin: 03/25/17 09:09 Dose: 5,000 units Levofloxacin (Levaquin) 750 mg PO DAILY [facility] Last Admin: 03/25/17 09:09 Dose: 750 mg Tramadol HCl (Ultram) 50 mg PO TID PRN PRN Reason: Pain, moderate (4-7) Last Admin: 03/25/17 04:19 Dose: 50 mg - Labs Labs: 03/25/17 08:20 03/25/17 08:20 - Constitutional Appears: No Acute Distress - Head Exam Head Exam: ATRAUMATIC, NORMAL INSPECTION, NORMOCEPHALIC - Eye Exam Eye Exam: EOMI, Normal appearance, PERRL Pupil Exam: NORMAL ACCOMODATION, PERRL - ENT Exam ENT Exam: Mucous Membranes Moist, Normal Exam - Neck Exam Neck Exam: Full ROM, Normal Inspection. absent: Lymphadenopathy - Respiratory Exam Respiratory Exam: Clear to Ausculation Bilateral, NORMAL BREATHING PATTERN - Cardiovascular Exam Cardiovascular Exam: REGULAR RHYTHM, +S1, +S2. absent: Murmur - GI/Abdominal Exam GI & Abdominal Exam: Soft, Normal Bowel Sounds. absent: Tenderness - Extremities Exam Extremities Exam: Full ROM, Normal Capillary Refill, Normal Inspection. absent : Joint Swelling, Pedal Edema - Neurological Exam Neurological Exam: Alert, Awake, CN II-XII Intact, Normal Gait, Oriented x3 - Psychiatric Exam Psychiatric exam: Normal Affect, Normal Mood - Skin Skin Exam: Dry, Intact, Normal Color, Warm Assessment and Plan - Assessment and Plan (Free Text) Assessment: 61 M with PMHx of shingles, pneumonia admitted with failed pna treatment. 1. Non resolving pneumonia - Levaquin/prednisone ID COnsulted, Dr. Medina on board - CXR showed bilateral alveloar infiltrates. - Procal <0.05. ESR 12 and CRP 3.3. - Cultures pending. - Ddimer found to be elevated however patient doesnt appear sob today and does not have hypoxia or tachycardia. - CT chest pending which will help us to rule out other non infectious etiologies. - WAYNE, GBM, MPO, proteinase3 and HIV was negative - FU echo 2. Mediastinal Lymph nodule - fu med record from [facility] regarding previous bx - possible IR bx 3. Herpes Zoster - Acute Neuritis - He is not immunocompromised. - Completed 7 days of valtrex. He has acute neuritis. - tramadol for analgesia GI and DVT ppx reviewed <Amira Lazo - Last Filed: 03/25/17 16:29> Objective - Vital Signs/Intake and Output Vital Signs (last 24 hours): Temp Pulse Resp BP Pulse Ox 97.9 F 59 L 20 132/87 98 03/25/17 08:37 03/25/17 08:37 03/25/17 08:37 03/25/17 08:37 03/25/17 08:37 Intake and Output: 03/25/17 03/25/17 06:59 18:59 Intake Total 480 960 Balance 480 960 - Medications Medications: Current Medications Al Hydrox/Mg Hydrox/Simethicone (Maalox Plus 30 Ml) 30 ml PO DAILY PRN PRN Reason: Indigestion / Heartburn Albuterol/Ipratropium (Duoneb 3 Mg/0.5 Mg (3 Ml) Ud) 3 ml IH [id number] PRN PRN Reason: Shortness of Breath Famotidine (Pepcid) 40 mg PO DAILY [facility] Last Admin: 03/25/17 09:09 Dose: 40 mg Heparin Sodium (Porcine) (Heparin) 5,000 units SC Q12 BRITTNY PRN Reason: Protocol Last Admin: 03/25/17 09:09 Dose: 5,000 units Levofloxacin (Levaquin) 750 mg PO DAILY [facility] Last Admin: 03/25/17 09:09 Dose: 750 mg Tramadol HCl (Ultram) 50 mg PO TID PRN PRN Reason: Pain, moderate (4-7) Last Admin: 03/25/17 04:19 Dose: 50 mg - Labs Labs: 03/25/17 08:20 03/25/17 08:20 Attending/Attestation - Attestation I have personally seen and examined this patient.: Yes I have fully participated in the care of the patient.: Yes I have reviewed all pertinent clinical information, including history, physical exam and plan: Yes Notes (Text): This is 61 year old male with history of recent discharge from the hospital with viral pneumonia (procal <0.05) and was also diagnosed with shingles at that time presented 2 days ago for evaluation of dyspnea at rest, dyspnea on exertion, mild cough with whitish scant sputum production and CXR findings of persistent bilateral alveolar infiltrates. Patient reports completing the antibiotic course which included inpatient rocephin and zithromax followed by levaquin. Patient also mentions that there was a subjective improvement few days after taking antibiotics but symptoms reappeared. Patient is admitted here for Non resolving pneumonia. CXR showed bilateral alveloar infiltrates. Procal <0.05. ESR 12 and CRP 3.3. Cultures pending. Ddimer found to be elevated however patient did not have hypoxia or tachycardia. CT chest revealed dense bilateral alveolar consolidative changes with adjacent hilar lymphadenopathy. Multiple pulmonary nodules noted. These finding were discussed with ID. Call placed for Dr Garo Wells to evaluate CT. . Awaiting his call back. Pulmonary consult also pending. WAYNE, GBM, MPO, proteinase3 and HIV was negative on his last admission. He is not on any medications at home. ID consult appreciated. Continue levaquin. For Herpes Zoster, as he is not immunocompromised, he completed 7 days of valtrex. He has acute neuritis. Will continue tramadol. Upon discharge patient will follow up with Dr Dick Lazo
--- NOTE | 2017-03-25 14:24 | CARD ---
APPROVED REPORT EXAM: Two-dimensional and M-mode echocardiogram with Doppler and color Doppler. INDICATION LV Function:SystolicDiastolic 2D DIMENSIONS Left Atrium (2D)3.6 (1.6-4.0cm)IVSd1.0 (0.7-1.1cm) LVDd4.8 (3.9-5.9cm)PWd1.0 (0.7-1.1cm) LVDs3.2 (2.5-4.0cm)FS (%) 34.5 % LVEF (%)63.6 (>50%) M-Mode DIMENSIONS Aortic Root2.60 (2.2-3.7cm)Aortic Cusp Exc.1.90 (1.5-2.0cm) Aortic Valve AoV Peak Heskjnag689.0cm/Ana Peak GR.10mmHg Mitral Valve MV E Tcipnahh00.2cm/sMV A Evpgwvmz38.0cm/sE/A ratio1.1 TDI E/Lateral E'0.0E/Medial E'0.0 Tricuspid Valve TR Peak Viojmptd937rp/sRAP TDQKOZBQ80mwRlVV Peak Gr.27mmHg VIJH19lpDc LEFT VENTRICLE The left ventricle is normal size. There is normal left ventricular wall thickness. The left ventricular function is normal. The left ventricular ejection fraction is within the normal range. There is normal LV segmental wall motion. Transmitral Doppler flow pattern is Grade I-abnormal relaxation pattern. RIGHT VENTRICLE The right ventricle is normal size. There is normal right ventricular wall thickness. The right ventricular systolic function is normal. ATRIA The left atrium size is normal. The right atrium size is normal. AORTIC VALVE The aortic valve is not well visualized. No aortic regurgitation is present. MITRAL VALVE The mitral valve is normal in structure. There is no mitral valve regurgitation noted. TRICUSPID VALVE There is trace to mild tricuspid regurgitation. There is mild pulmonary hypertension. GREAT VESSELS The aortic root is normal in size. The IVC was not visualized. PERICARDIAL EFFUSION There is a trace loculated anterior pericardial effusion. <Conclusion> The left ventricle is normal size. There is normal left ventricular wall thickness. The left ventricular function is normal. The left ventricular ejection fraction is within the normal range. There is normal LV segmental wall motion. Transmitral Doppler flow pattern is Grade I-abnormal relaxation pattern. There is mild pulmonary hypertension.
[2017-03-26 07:58] LABS: ADD MANUAL DIFF? NO
[2017-03-26 08:04] LABS: BASO # 0.02 K/mm3 (0.0-2.0); BASO % 0.5 % (0.0-3.0); EOS # 0.6 (0.0-0.7); EOS % 13.4 % (1.5-5.0); GRAN # 1.71 (1.4-6.5); GRAN % 41.9 % (50.0-68.0); LYMPH # 1.2 (1.2-3.4); LYMPH % 29.8 % (22.0-35.0); MEAN CELL VOLUME 79.3 fL (80.0-105.0); MEAN CORPUSCULAR HEMOGLOBIN 26.9 pg (25.0-35.0); MEAN CORPUSCULAR HGB CONC 33.9 g/dl (31.0-37.0); MEAN PLATELET VOLUME 9.3 fl (7.0-11.0); MONO # 0.6 (0.1-0.6); MONO % 14.4 % (1.0-6.0); PLATELET COUNT 261 10^3/uL (120.0-450.0); RED CELL DISTRIBUTION WIDTH 14.6 % (11.5-14.5); WHITE BLOOD COUNT 4.1 10^3/ul (4.5-11.0)
[2017-03-26 08:14] LABS: ALKALINE PHOSPHATASE 75 U/L (38-133); ALT/SGPT 37 U/L (7-56); AST/SGOT 29 U/L (15-59); BILIRUBIN,TOTAL 0.9 mg/dL (0.2-1.3); BLOOD UREA NITROGEN 22 mg/dL (7-21); CALCIUM 9.1 mg/dL (8.4-10.5); CARBON DIOXIDE 26 mmol/L (21-33); CHLORIDE 99 mmol/L (95-110); GFR AFRICAN-AMERICAN > 60; GLUCOSE,RANDOM 82 mg/dL (70-110); POTASSIUM 4.3 mmol/L (3.6-5.0); SODIUM 134 mmol/L (132-148)
[2017-03-26] MEDS: levoFLOXacin 750 MG TAB PO SCH (09:07)
--- NOTE | 2017-03-26 13:02 | CP.PCM.PN ---
Subjective - Date & Time of Evaluation Date of Evaluation: 03/26/17 Time of Evaluation: 10:35 - Subjective Subjective: Comfortable in bed, not in distress, no fevers overnight. Objective - Vital Signs/Intake and Output Vital Signs (last 24 hours): Temp Pulse Resp BP Pulse Ox 98 F 61 18 121/80 98 03/26/17 09:00 03/26/17 09:00 03/26/17 09:00 03/26/17 09:00 03/26/17 09:00 Intake and Output: 03/26/17 03/26/17 06:59 18:59 Intake Total 680 Output Total 800 Balance -120 - Medications Medications: Current Medications Al Hydrox/Mg Hydrox/Simethicone (Maalox Plus 30 Ml) 30 ml PO DAILY PRN PRN Reason: Indigestion / Heartburn Last Admin: 03/25/17 21:30 Dose: 30 ml Albuterol/Ipratropium (Duoneb 3 Mg/0.5 Mg (3 Ml) Ud) 3 ml IH [id number] PRN PRN Reason: Shortness of Breath Famotidine (Pepcid) 40 mg PO DAILY [facility] Last Admin: 03/26/17 09:07 Dose: 40 mg Heparin Sodium (Porcine) (Heparin) 5,000 units SC Q12 BRITTNY PRN Reason: Protocol Last Admin: 03/26/17 09:07 Dose: 5,000 units Levofloxacin (Levaquin) 750 mg PO DAILY [facility] Last Admin: 03/26/17 09:07 Dose: 750 mg Tramadol HCl (Ultram) 50 mg PO TID PRN PRN Reason: Pain, moderate (4-7) Last Admin: 03/26/17 01:20 Dose: 50 mg - Labs Labs: 03/26/17 07:12 03/26/17 07:20 - Constitutional Appears: Non-toxic, No Acute Distress - Head Exam Head Exam: NORMAL INSPECTION - ENT Exam ENT Exam: Mucous Membranes Moist - Neck Exam Neck Exam: absent: Lymphadenopathy, Meningismus - Respiratory Exam Respiratory Exam: Decreased Breath Sounds - Cardiovascular Exam Cardiovascular Exam: +S1, +S2 - GI/Abdominal Exam GI & Abdominal Exam: Soft. absent: Tenderness Assessment and Plan - Assessment and Plan (Free Text) Plan: Assessment Pulmonary infiltrates, chronic with associated mediastinal lymphadenopathy ( apparently seen even 3 years ago) history of pneumonia history of Herpes zoster infection S/P treatment for influenza Plan continue Levaquin and awaiting medical records from [facility] regarding lymph node biopsy
--- NOTE | 2017-03-26 18:17 | PN ---
DATE: 03/26/2017 The patient seen and examined at bedside. This is a 61-year-old gentleman with history of pneumonia in 2014 and a recent bout of shingles, status post Valtrex therapy course, who presented at this time shortly after he was discharged with the chief complaint of right-sided posterior back pain and feeling fatigued and short of breath for about 2 weeks. He was admitted with pneumonia at the end of 02/2017. At that time, he was found to be positive for influenza A and shingles. He was treated with Levaquin and Rocephin and substantially improved. However, he presented again with shortness of breath and some pleuritic chest pain. The patient denies fever, chills, sweats. He completed his course of Valtrex. No dizziness, no palpitation, no chest pain, no shortness of breath and no other medical or psychological complaints. PAST MEDICAL HISTORY: Shingles, influenza A and pneumonia recently. MEDICATIONS AT HOME: None. ALLERGIES: PENICILLINS (ANAPHYLAXIS). SOCIAL HISTORY: life long nonsmoker, no alcohol or illicit drug abuse. REVIEW OF SYSTEMS: Revealed 12-point system other than mentioned in history of present illness is negative. FAMILY HISTORY: Noncontributory. PHYSICAL EXAMINATION: VITAL SIGNS: Temperature 98, blood pressure 121/80, heart rate 61, oxygen saturation 98% on room air, respiratory rate 18. HEAD AND NECK: Atraumatic. LUNGS: Clear to auscultation bilaterally. HEART: Regular rate and rhythm. S1, S2 normal. ABDOMEN: Soft, nontender, nondistended. MUSCULOSKELETAL: No C/C/E. NEUROLOGIC: The patient moves all extremities spontaneously. SKIN: Moist. There are crusted and healed lesions related to previous shingles in the right rib cage. PSYCHIATRIC: The patient is alert and oriented x 3, not in respiratory or otherwise distress. LABORATORY DATA: WBC 4.1, hemoglobin 12.9, platelet count 261. Sodium 134, potassium 4.3, chloride 99, carbon dioxide 26, BUN 22, creatinine 1.4 down from 1.5, AST 29, ALT is 37. WBC 4.1, hemoglobin 12.9, platelet count 261. CAT scan of the chest revealed dense bilateral alveolar consolidative changes inseparable from adjacent hilar adenopathy, additional mediastinal and subcarinal lymphadenopathy noted, multiple pulmonary nodules are stable, most likely etiologies include inflammatory, infectious and neoplastic processes. ASSESSMENT AND PLAN: This is a 61-year-old gentleman who presented with community-acquired pneumonia with history of recent admission for influenza A infection. The patient made substantial recovery since his admission 3 days ago. I would complete the course of antibiotics. At present time, respiratory- castro he is stable and at baseline. He does not have shortness of breath, cough or chest pain. Radiographic findings are of concern including infiltrate and lymphadenopathy. Interestingly, patient reports that 3 years ago in 2013 he had similar presentation with reportedly the same radiographic picture and was admitted to [facility] where biopsy of the nodules and infiltrate was done. He was told that the results are negative for malignancy and biopsy showed only some inflammatory changes. The records from [facility] were requested and results are pending. Those records will determine next step in the patient's management. We will also take a look at his previous images including CAT scans and chest x-ray from that time when biopsy was done to compare with present chest CAT scan. We will continue to target euvolemia, euglycemia, normothermia and oxygen saturation more than 90% We will continue with DVT and GI prophylaxis. Reginaldo Bernal MD cc: [id number] TT: 03/26/2017 18:16:17 Confirmation # [id number] Dictation # [id number] conrad ROMAN
[2017-03-27 08:24] LABS: ADD MANUAL DIFF? NO
[2017-03-27 08:26] VITALS: O2SAT 97
[2017-03-27 08:30] LABS: BASO # 0.01 K/mm3 (0.0-2.0); BASO % 0.3 % (0.0-3.0); EOS # 0.5 (0.0-0.7); EOS % 15.7 % (1.5-5.0); GRAN # 1.49 (1.4-6.5); GRAN % 44.1 % (50.0-68.0); HEMATOCRIT 39.1 % (42.0-52.0); LYMPH # 0.9 (1.2-3.4); LYMPH % 26.3 % (22.0-35.0); MEAN CELL VOLUME 79.5 fL (80.0-105.0); MEAN PLATELET VOLUME 9.2 fl (7.0-11.0); MONO # 0.5 (0.1-0.6); MONO % 13.6 % (1.0-6.0); PLATELET COUNT 246 10^3/uL (120.0-450.0); RED CELL DISTRIBUTION WIDTH 14.6 % (11.5-14.5); WHITE BLOOD COUNT 3.4 10^3/ul (4.5-11.0)
[2017-03-27 08:44] LABS: ALKALINE PHOSPHATASE 72 U/L (38-133); ALT/SGPT 32 U/L (7-56); AST/SGOT 26 U/L (15-59); BILIRUBIN,TOTAL 1.1 mg/dL (0.2-1.3); BLOOD UREA NITROGEN 18 mg/dL (7-21); CALCIUM 9.3 mg/dL (8.4-10.5); CARBON DIOXIDE 25 mmol/L (21-33); CHLORIDE 100 mmol/L (98-107); GFR AFRICAN-AMERICAN > 60; GLUCOSE,RANDOM 102 mg/dL (70-110); POTASSIUM 4.1 mmol/L (3.6-5.0); SODIUM 135 mmol/L (132-148); TOTAL PROTEIN 8.1 g/dL (5.8-8.3)
[2017-03-27] MEDS: levoFLOXacin 750 MG TAB PO SCH (10:03)
--- NOTE | 2017-03-27 13:59 | CP.PCM.PN ---
<Gabriela Carter - Last Filed: 03/27/17 15:47> Subjective - Date & Time of Evaluation Date of Evaluation: 03/26/17 Time of Evaluation: 10:00 - Subjective Subjective: Pt was seen and examined at bedside. No acute complaints at this time. No acute or adverse events overnight, as per nursing staff. Pt breathing without issue. Pt denied fever, chills, sob, chest pain, abdominal pains, n/v/d/c or urinary symptoms. Pt has mild pain associated with shingles. Objective - Vital Signs/Intake and Output Vital Signs (last 24 hours): Temp Pulse Resp BP Pulse Ox 98.3 F 64 18 135/87 97 03/27/17 08:21 03/27/17 08:21 03/27/17 08:21 03/27/17 08:21 03/27/17 08:21 Intake and Output: 03/27/17 03/27/17 06:59 18:59 Intake Total 480 Balance 480 - Medications Medications: Current Medications Al Hydrox/Mg Hydrox/Simethicone (Maalox Plus 30 Ml) 30 ml PO DAILY PRN PRN Reason: Indigestion / Heartburn Last Admin: 03/25/17 21:30 Dose: 30 ml Albuterol/Ipratropium (Duoneb 3 Mg/0.5 Mg (3 Ml) Ud) 3 ml IH [id number] PRN PRN Reason: Shortness of Breath Famotidine (Pepcid) 40 mg PO DAILY [facility] Last Admin: 03/27/17 10:03 Dose: 40 mg Heparin Sodium (Porcine) (Heparin) 5,000 units SC Q12 BRITTNY PRN Reason: Protocol Last Admin: 03/27/17 10:03 Dose: 5,000 units Levofloxacin (Levaquin) 750 mg PO DAILY [facility] Last Admin: 03/27/17 10:03 Dose: 750 mg Tramadol HCl (Ultram) 50 mg PO TID PRN PRN Reason: Pain, moderate (4-7) Last Admin: 03/26/17 01:20 Dose: 50 mg - Labs Labs: 03/27/17 08:00 03/27/17 08:00 - Constitutional Appears: No Acute Distress - Head Exam Head Exam: ATRAUMATIC, NORMAL INSPECTION, NORMOCEPHALIC - Eye Exam Eye Exam: EOMI, Normal appearance, PERRL Pupil Exam: NORMAL ACCOMODATION, PERRL - ENT Exam ENT Exam: Mucous Membranes Moist, Normal Exam - Neck Exam Neck Exam: Full ROM, Normal Inspection. absent: Lymphadenopathy - Respiratory Exam Respiratory Exam: Clear to Ausculation Bilateral, NORMAL BREATHING PATTERN - Cardiovascular Exam Cardiovascular Exam: REGULAR RHYTHM, +S1, +S2. absent: Murmur - GI/Abdominal Exam GI & Abdominal Exam: Soft, Normal Bowel Sounds. absent: Tenderness - Extremities Exam Extremities Exam: Full ROM, Normal Capillary Refill, Normal Inspection. absent : Joint Swelling, Pedal Edema - Back Exam Back Exam: NORMAL INSPECTION - Neurological Exam Neurological Exam: Alert, Awake, CN II-XII Intact, Normal Gait, Oriented x3 - Psychiatric Exam Psychiatric exam: Normal Affect, Normal Mood - Skin Skin Exam: Dry, Intact, Normal Color, Warm Assessment and Plan - Assessment and Plan (Free Text) Assessment: 61 M with PMHx of shingles, pneumonia admitted with failed pna treatment. 1. Non resolving pneumonia - Levaquin/prednisone ID Consulted, Dr. Medina on board - CXR showed bilateral alveloar infiltrates. - Procal <0.05. ESR 12 and CRP 3.3. - Cultures pending. - Ddimer found to be elevated however patient doesnt appear sob today and does not have hypoxia or tachycardia. - CT chest pending which will help us to rule out other non infectious etiologies. - WAYNE, GBM, MPO, proteinase3 and HIV was negative - Levaquin 2. Mediastinal Lymph nodule - fu med record from [facility] [place] regarding previous bx - possible IR bx 3. Herpes Zoster - Acute Neuritis - He is not immunocompromised. - Completed 7 days of valtrex. He has acute neuritis. - tramadol for analgesia GI and DVT ppx reviewed <Dalton ZARATE,Filiberto - Last Filed: 03/27/17 17:14> Objective - Vital Signs/Intake and Output Vital Signs (last 24 hours): Temp Pulse Resp BP Pulse Ox 98.3 F 64 18 135/87 97 03/27/17 08:21 03/27/17 08:21 03/27/17 08:21 03/27/17 08:21 03/27/17 08:21 Intake and Output: 03/27/17 03/27/17 06:59 18:59 Intake Total 480 1080 Balance 480 1080 - Medications Medications: Current Medications Al Hydrox/Mg Hydrox/Simethicone (Maalox Plus 30 Ml) 30 ml PO DAILY PRN PRN Reason: Indigestion / Heartburn Last Admin: 03/25/17 21:30 Dose: 30 ml Albuterol/Ipratropium (Duoneb 3 Mg/0.5 Mg (3 Ml) Ud) 3 ml IH [id number] PRN PRN Reason: Shortness of Breath Famotidine (Pepcid) 40 mg PO DAILY [facility] Last Admin: 03/27/17 10:03 Dose: 40 mg Heparin Sodium (Porcine) (Heparin) 5,000 units SC Q12 BRITTNY PRN Reason: Protocol Last Admin: 03/27/17 10:03 Dose: 5,000 units Levofloxacin (Levaquin) 750 mg PO DAILY [facility] Last Admin: 03/27/17 10:03 Dose: 750 mg Tramadol HCl (Ultram) 50 mg PO TID PRN PRN Reason: Pain, moderate (4-7) Last Admin: 03/26/17 01:20 Dose: 50 mg - Labs Labs: 03/27/17 08:00 03/27/17 08:00 Attending/Attestation - Attestation I have personally seen and examined this patient.: Yes I have fully participated in the care of the patient.: Yes I have reviewed all pertinent clinical information, including history, physical exam and plan: Yes Notes (Text): 03/27/17 17:11 Patient was seen and examined with chief medical director .Agreed with resident assessment and plan. Patient is feeling better, he is afebrile, on room air.He has mediastinal lymphadenopathy, discuss with pulmonary, awaiting for medical record from [facility] [place].As per patient, he had biosy done 3 yrs back and it was OK ? The decision for repeat biopsy will be made after patient medical record will be available. Management plan was discussed in detail with patient Education was provided
--- NOTE | 2017-03-27 14:00 | CP.PCM.DIS ---
<Gabriela Carter - Last Filed: 03/28/17 16:43> Provider - Provider Date of Admission: 03/23/17 15:46 Attending physician: Amira Lazo MD Primary care physician: Syed Figeuroa MD Consults: Pulmonolgy - Dr. Bernal Time Spent in preparation of Discharge (in minutes): 45 Hospital Course - Lab Results Lab Results: Micro Results 03/23/17 19:00 Blood-Venous Blood Culture - Preliminary NO GROWTH AFTER 3 DAYS 03/23/17 19:00 Blood-Venous Blood Culture - Preliminary NO GROWTH AFTER 3 DAYS Most Recent Lab Values WBC 3.4 10^3/ul (4.5-11.0) L 03/27/17 08:00 RBC 4.92 10^6/uL (3.5-6.1) 03/27/17 08:00 Hgb 13.3 gm/dL (14.0-18.0) L 03/27/17 08:00 Hct 39.1 % (42.0-52.0) L 03/27/17 08:00 MCV 79.5 fL (80.0-105.0) L 03/27/17 08:00 MCH 27.0 pg (25.0-35.0) 03/27/17 08:00 MCHC 34.0 g/dl (31.0-37.0) 03/27/17 08:00 RDW 14.6 % (11.5-14.5) H 03/27/17 08:00 Plt Count 246 10^3/uL (120.0-450.0) 03/27/17 08:00 MPV 9.2 fl (7.0-11.0) 03/27/17 08:00 Gran % 44.1 % (50.0-68.0) L 03/27/17 08:00 Lymph % (Auto) 26.3 % (22.0-35.0) 03/27/17 08:00 Edwards % (Auto) 13.6 % (1.0-6.0) H 03/27/17 08:00 Eos % (Auto) 15.7 % (1.5-5.0) H 03/27/17 08:00 Baso % (Auto) 0.3 % (0.0-3.0) 03/27/17 08:00 Gran # 1.49 (1.4-6.5) 03/27/17 08:00 Lymph # 0.9 (1.2-3.4) L 03/27/17 08:00 Edwards # 0.5 (0.1-0.6) 03/27/17 08:00 Eos # 0.5 (0.0-0.7) 03/27/17 08:00 Baso # 0.01 K/mm3 (0.0-2.0) 03/27/17 08:00 ESR 12 mm/hr (0.00-15.0) 03/23/17 19:00 D-Dimer, Quantitative 1.31 mg/L FEU (0-0.50) H 03/23/17 19:00 Sodium 135 mmol/L (132-148) 03/27/17 08:00 Potassium 4.1 mmol/L (3.6-5.0) 03/27/17 08:00 Chloride 100 mmol/L (98-107) 03/27/17 08:00 Carbon Dioxide 25 mmol/L (21-33) 03/27/17 08:00 Anion Gap 14 (10-20) 03/27/17 08:00 BUN 18 mg/dL (7-21) 03/27/17 08:00 Creatinine 1.3 mg/dL (0.5-1.4) 03/27/17 08:00 Est GFR ( Amer) > 60 03/27/17 08:00 Est GFR (Non-Af Amer) 56 03/27/17 08:00 Random Glucose 102 mg/dL (70-110) 03/27/17 08:00 Calcium 9.3 mg/dL (8.4-10.5) 03/27/17 08:00 Total Bilirubin 1.1 mg/dL (0.2-1.3) 03/27/17 08:00 AST 26 U/L (15-59) 03/27/17 08:00 ALT 32 U/L (7-56) 03/27/17 08:00 Alkaline Phosphatase 72 U/L (38-133) 03/27/17 08:00 C-React Prot High Sens 3.39 mg/L (1.00-3.00) H 03/23/17 19:00 NT-Pro-B Natriuret Pep 22.7 pg/mL (0-450) 03/23/17 14:30 Total Protein 8.1 g/dL (5.8-8.3) 03/27/17 08:00 Albumin 4.0 g/dL (3.0-4.8) 03/27/17 08:00 Globulin 4.1 gm/dL 03/27/17 08:00 Albumin/Globulin Ratio 1.0 (1.1-1.8) L 03/27/17 08:00 Procalcitonin < 0.05 NG/ML (0.19-0.49) L 03/23/17 19:00 - Hospital Course Hospital Course: Patient is a 61 year old male with past medical history of shingles that presented c/o shortness of breath that have been exacerbated within the last 4 days. Patient states that he had a recent outbreak of shingles and pneumonia for which he was [place] [facility] treated with valtrex , levaquin and ceftriaxone. Patient reports his symptoms are associated with right-sided thoracic back pain that extends to his sternum as well as fatigue. He states that his shingles outbreak has been improving and the pain has substantially decreased. Chest xray in the ED revealed stable bilateral alveolar infiltrates, no appreciable interval change. Pt had a mild cough with whitish scant sputum production and CXR findings of persistent bilateral alveolar infiltrates. Patient reports completing the antibiotic course which included inpatient rocephin and zithromax followed by levaquin. Patient also mentions that there was a subjective improvement few days after taking antibiotics but symptoms reappeared. Ddimer found to be elevated however patient did not have hypoxia or tachycardia. CT chest revealed dense bilateral alveolar consolidative changes with adjacent hilar lymphadenopathy. Multiple pulmonary nodules noted. These finding were discussed with ID, Dr. Solo. Pulmonary consult placed, Dr. Bernal. Recommended to fu with bx results he had 3 years prior as well as imaging to track any changes in the lymph nodes to decide on the next steps in management. Pt was stable and clear to DC with fu as out with PMD and Storage Consultant. Pt was given his records from this visit to bring to PMD and soap grinder to compare with [facility] documents to determine next steps of care. For Herpes Zoster, as he is not immunocompromised, he completed 7 days of valtrex. He has acute neuritis. Will continue tramadol. Pt was dc with abx. Upon discharge patient will follow up with Dr Dick WITT within 3-5 days. Pt will fu with Pulm, Dr. Muniz as per pt wishes. Discharge Exam - Head Exam Head Exam: NORMAL INSPECTION - Eye Exam Eye Exam: EOMI, Normal appearance, PERRL Pupil Exam: NORMAL ACCOMODATION - ENT Exam ENT Exam: Mucous Membranes Moist - Respiratory Exam Respiratory Exam: Clear to PA & Lateral, NORMAL BREATHING PATTERN, UNREMARKABLE - Cardiovascular Exam Cardiovascular Exam: RRR, +S1, +S2 - GI/Abdominal Exam GI & Abdominal Exam: Normal Bowel Sounds, Soft. absent: Tenderness - Extremities Exam Extremities exam: normal inspection - Back Exam Back exam: NORMAL INSPECTION Additional comments: rash improving - Neurological Exam Neurological exam: Alert, CN II-XII Intact, Normal Gait, Oriented x3, Reflexes Normal - Psychiatric Exam Psychiatric exam: Normal Affect, Normal Mood - Skin Skin Exam: Dry, Intact, Normal Color, Warm Additional comments: shingles rash improving Discharge Plan - Discharge Medications Prescriptions: levoFLOXacin [Levaquin] 750 mg PO DAILY #5 tab traMADol [Ultram] 50 mg PO TID PRN #15 tab PRN Reason: Pain, Moderate (4-7) - Follow Up Plan Condition: STABLE Disposition: HOME/ ROUTINE Instructions: Community Acquired Pneumonia (DC), Community Acquired Pneumonia ( GEN), Dyspnea (GEN) Additional Instructions: IF YOU ARE EXPERIENCING SHORTNESS OF BREATH AND/OR CHEST PAIN, GO TO THE ER. FOLLOW UP WITH YOUR DOCTOR WITHIN 1 WEEK. TAKE ALL MEDICATIONS PRESCRIBED. Referrals: Syed Figueroa [Primary Care Provider] - <Dalton ZARATE,[facility] - Last Filed: 03/28/17 17:28> Provider - Provider Date of Admission: 03/23/17 15:46 Attending physician: Amira Lazo MD Primary care physician: Syed Figueroa MD Hospital Course - Lab Results Lab Results: Micro Results 03/23/17 19:00 Blood-Venous Blood Culture - Preliminary NO GROWTH AFTER 4 DAYS 03/23/17 19:00 Blood-Venous Blood Culture - Preliminary NO GROWTH AFTER 4 DAYS Most Recent Lab Values WBC 3.4 10^3/ul (4.5-11.0) L 03/27/17 08:00 RBC 4.92 10^6/uL (3.5-6.1) 03/27/17 08:00 Hgb 13.3 gm/dL (14.0-18.0) L 03/27/17 08:00 Hct 39.1 % (42.0-52.0) L 03/27/17 08:00 MCV 79.5 fL (80.0-105.0) L 03/27/17 08:00 MCH 27.0 pg (25.0-35.0) 03/27/17 08:00 MCHC 34.0 g/dl (31.0-37.0) 03/27/17 08:00 RDW 14.6 % (11.5-14.5) H 03/27/17 08:00 Plt Count 246 10^3/uL (120.0-450.0) 03/27/17 08:00 MPV 9.2 fl (7.0-11.0) 03/27/17 08:00 Gran % 44.1 % (50.0-68.0) L 03/27/17 08:00 Lymph % (Auto) 26.3 % (22.0-35.0) 03/27/17 08:00 Edwards % (Auto) 13.6 % (1.0-6.0) H 03/27/17 08:00 Eos % (Auto) 15.7 % (1.5-5.0) H 03/27/17 08:00 Baso % (Auto) 0.3 % (0.0-3.0) 03/27/17 08:00 Gran # 1.49 (1.4-6.5) 03/27/17 08:00 Lymph # 0.9 (1.2-3.4) L 03/27/17 08:00 Edwards # 0.5 (0.1-0.6) 03/27/17 08:00 Eos # 0.5 (0.0-0.7) 03/27/17 08:00 Baso # 0.01 K/mm3 (0.0-2.0) 03/27/17 08:00 ESR 12 mm/hr (0.00-15.0) 03/23/17 19:00 D-Dimer, Quantitative 1.31 mg/L FEU (0-0.50) H 03/23/17 19:00 Sodium 135 mmol/L (132-148) 03/27/17 08:00 Potassium 4.1 mmol/L (3.6-5.0) 03/27/17 08:00 Chloride 100 mmol/L (98-107) 03/27/17 08:00 Carbon Dioxide 25 mmol/L (21-33) 03/27/17 08:00 Anion Gap 14 (10-20) 03/27/17 08:00 BUN 18 mg/dL (7-21) 03/27/17 08:00 Creatinine 1.3 mg/dL (0.5-1.4) 03/27/17 08:00 Est GFR ( Amer) > 60 03/27/17 08:00 Est GFR (Non-Af Amer) 56 03/27/17 08:00 Random Glucose 102 mg/dL (70-110) 03/27/17 08:00 Calcium 9.3 mg/dL (8.4-10.5) 03/27/17 08:00 Total Bilirubin 1.1 mg/dL (0.2-1.3) 03/27/17 08:00 AST 26 U/L (15-59) 03/27/17 08:00 ALT 32 U/L (7-56) 03/27/17 08:00 Alkaline Phosphatase 72 U/L (38-133) 03/27/17 08:00 C-React Prot High Sens 3.39 mg/L (1.00-3.00) H 03/23/17 19:00 NT-Pro-B Natriuret Pep 22.7 pg/mL (0-450) 03/23/17 14:30 Total Protein 8.1 g/dL (5.8-8.3) 03/27/17 08:00 Albumin 4.0 g/dL (3.0-4.8) 03/27/17 08:00 Globulin 4.1 gm/dL 03/27/17 08:00 Albumin/Globulin Ratio 1.0 (1.1-1.8) L 03/27/17 08:00 Procalcitonin < 0.05 NG/ML (0.19-0.49) L 03/23/17 19:00 Attending/Attestation - Attestation I have personally seen and examined this patient.: Yes I have fully participated in the care of the patient.: Yes I have reviewed all pertinent clinical information, including history, physical exam and plan: Yes Notes (Text): 03/28/17 17:25 Patient was seen and examined with medical billing coder .Agreed with resident assessment and plan. Patient is feeling better, he is afebrile, on room air.He has mediastinal lymphadenopathy, discuss with pulmonary,his medical record was requested but still awaiting [place] [facility]As per patient, he had biosy done 3 yrs back and it was OK ? The decision for repeat biopsy will be made after patient medical record will be available.Patient is planning to follow with his Storage Consultant as out patient.He was advised to take copy of his CT chest and LABS work from here and he also need to get his medical record from [facility] before going to his Storage Consultant..He may need repeat Bronchoscopy and biopsies depending on those reports.This was discussed in detail with him.He also wants to be discharged home. Management plan was discussed in detail with patient Education was provided
--- NOTE | 2017-03-27 16:49 | PN ---
DATE: 03/27/2017 SUBJECTIVE: The patient seen and examined at bedside. He is comfortable. He talks in full sentence s. He is not in respiratory or otherwise distress. PHYSICAL EXAMINATION: VITAL SIGNS: Temperature 98.3, blood pressure 135/87, heart rate 64, respiratory rate 18, oxygen sat uration 97% on room air. HEAD AND NECK: Atraumatic. LUNGS: Clear to auscultation bilaterally. HEART: Regular rate and rhythm. S1, S2 normal. ABDOMEN: Soft, nontender, nondistended. MUSCULOSKELETAL: No C/C/E. NEUROLOGIC: The patient moves all extremities spontaneously. SKIN: Moist. PSYCHIATRIC: The patient is alert and oriented x 3. LABORATORY DATA: WBC 3.4, hemoglobin 13.3, platelet count 246. Sodium 135, potassium 4.1, chloride 100, carbon dioxide 25, BUN 18, creatinine 1.3, down from 1.5, glucose 102. MEDICATIONS: DuoNeb p.r.n., Pepcid daily, heparin subQ, levofloxacin, tramadol p.r.n. ASSESSMENT AND PLAN: This is a 61-year-old gentleman with history of shingles, who presented with w hat appears to be community-acquired pneumonia and hilar lymphadenopathy. He did have a similar pict ure 3 years ago scan which appears to be biopsied based on patient report. The records from [facility] are pending which will determine next step in the patient's management. Meanwhile, patient is hemodynam ically and respiratory castro stable. He is comfortable. He is not in respiratory or otherwise distre ss. He has is tolerating oral nutrition very well. He is speaking over the phone and watching TV. We will finish antibiotics. We will maintain euvolemia, euglycemia, normothermia and oxygen saturati on more than 90%. We will continue with deep venous thrombosis and gastrointestinal prophylaxis. Reginaldo Bernal MD cc: [id number] TT: 03/27/2017 16:48:57 Confirmation # [id number] Dictation # [id number] haim
[2017-03-27 18:09] VITALS: BP 142/86; PULSE 75; RESP 20; TEMP 98.6
== END 2017-03-27 17:23 | disposition home or self-care (01) | DRG 89 ==
LOC: ED 09:43 → ERH 15:46 → 3RNO 18:28
PROVIDERS: ADMIT Hospitalist; ATTEND Hospitalist
DX: J18.9 Pneumonia, unspecified organism (principal); B02.23 Postherpetic polyneuropathy; M79.2 Neuralgia and neuritis, unspecified; Z87.01 Personal history of pneumonia (recurrent); Z88.0 Allergy status to penicillin; Z86.19 Personal history of other infectious and parasitic diseases; Z82.5 Family history of asthma and other chronic lower respiratory diseases; Z80.3 Family history of malignant neoplasm of breast; Z87.892 Personal history of anaphylaxis; R06.6 Hiccough; R59.0 Localized enlarged lymph nodes